=== PATIENT | male | born 1935 | race Caucasian/White ===

== ENCOUNTER 2016-08-14 14:02 | Emergency (ER) | payer MEDICARE, BC ==
[2016-08-14 14:13] VITALS: BP 130/56
--- NOTE | 2016-08-14 14:57 | CR ---
Chest: 2 views of the chest were obtained. Comparison: Previous chest x-ray of 05/28/16. Findings: Previous parenchymal density within the right upper lung has mostly resolved. There is some residual masslike density within the right upper lung that is an interval change from prior study. Difficult to exclude recurrent malignancy. Additional masslike density is seen within the left base which is smaller than the right upper lung finding. Blunting of the lateral left costophrenic angle is seen. Heart size appears within normal limits. Right sided infusion catheter is seen. Sternotomy and prosthetic heart valve are noted. Degenerative spurring is noted within the spine. Pleural thickening is noted within both lung apices. Impression: 1. Masslike density within the right upper chest which is an interval change from prior exam and difficult to exclude recurrent malignancy. 2. Additional masslike density within the left lung base which is an interval change from prior exam with differential including pneumonia, atelectasis and additional neoplasm. 3. Emphysematous change and other incidental findings. Diagnostic code #9
--- NOTE | 2016-08-14 15:07 | EDM.PDOC ---
ED HISTORY OF PRESENT ILLNESS - General Chief Complaint: Respiratory Problem Stated Complaint: SOB Time Seen by Provider: 08/14/16 14:23 Source of Information: Reports: Patient, Family History Limitations: Reports: No limitations - History of Present Illness INITIAL COMMENTS - FREE TEXT/NARRATIVE: The patient has lung cancer and he is currently getting immunological treatments for this. His last treatment was last week and for a few days he has had a cough and some mild wheezing. He has no fever, chills, sore throat, chest pain, abdominal pain, nausea or vomiting. He is worried he may have bronchitis or pneumonia. Timing/Duration: Reports: Day(s): Improves with: Reports: None Worsens with: Reports: None Associated Symptoms (General): Denies: chest pain, fever/chills, nausea/vomiting , shortness of breath - Related Data Allergies/ADRs: Allergies Allergy/AdvReac Type Severity Reaction Status Date / Time No Known Allergies Allergy Verified 08/14/16 14:10 Home Meds: Home Meds Calcium Carbonate [Calcium] 500 mg PO DAILY 02/23/14 [History] Diltiazem [Cardizem] 120 mg PO DAILY 02/23/14 [History] Furosemide [Lasix] 40 mg PO DAILY 02/23/14 [History] Metoprolol Succinate [Toprol Xl] 100 mg PO DAILY 02/23/14 [History] Potassium Chloride 20 meq PO DAILY 02/23/14 [History] Pramipexole [Mirapex] 1.5 mg PO BEDTIME 02/23/14 [History] Ramipril [Altace] 10 mg PO BEDTIME 02/23/14 [History] Tamsulosin [Flomax] 0.4 mg PO DAILY 02/23/14 [History] Warfarin [Coumadin] 7.5 mg PO DAILY 02/23/14 [History] atorvaSTATin [Lipitor] 40 mg PO DAILY 02/23/14 [History] Acetaminophen [Tylenol] 650 mg PO Q4H PRN 05/25/16 [History] Ascorbic Acid [Vitamin C] 250 mg PO DAILY 05/25/16 [History] Cholecalciferol (Vitamin D3) [Vitamin D] 1,000 units PO DAILY 05/25/16 [History] Cyanocobalamin (Vitamin B12) [Vitamin B12] 1,000 mcg PO DAILY 05/25/16 [History] Diltiazem [Cardizem CD] 120 mg PO DAILY 05/25/16 [History] Ferrous Sulfate [Iron] 324 mg PO DAILY 05/25/16 [History] Ubidecarenone [Coenzyme Q-10] 200 mg PO DAILY 05/25/16 [History] oxyCODONE 5 - 10 mg PO Q4H PRN 05/25/16 [History] Albuterol Sulfate [Proair Hfa] 8.5 gm IH Q4HR PRN #2 [id number] 05/29/16 [Rx] Levofloxacin [Levaquin] 750 mg PO DAILY #7 tablet 05/29/16 [Rx] Levofloxacin [Levaquin] 750 mg PO DAILY #5 tablet 08/14/16 [Rx] Past Medical History HEENT History: Reports: Impaired vision Other HEENT History: glasses Cardiovascular History: Reports: Afib, Bypass, CAD, High cholesterol, Hypertension Respiratory History: Reports: Sleep apnea Genitourinary History: Reports: Prostate disorder Musculoskeletal History: Reports: Arthritis, Back pain, chronic, Neck pain, chronic Hematologic History: Reports: Blood transfusion(s) Oncologic (Cancer) History: Reports: Lung, Lymphoma, Other (see below) Other Oncologic History: rectal cancer, surgically removed. reportedly in remission. - Infectious Disease History Infectious Disease History: Reports: Other (see below) Other Infectious Disease History: blood infection - Past Surgical History HEENT Surgical History: Reports: Cataract surgery Cardiovascular Surgical History: Reports: Carotid stents, Coronary artery bypass , Valve replacement Dermatological Surgical History: Reports: Skin graft Social & Family History - Family History Family Medical History: Noncontributory Cardiac: Reports: CAD : Reports: Other (see below) (ESRD in brother) Oncologic: Reports: Lung - Tobacco Use Smoking Status *Q: Former Smoker Years of Tobacco use: 20 Used Tobacco, but Quit: Yes Month Tobacco Last Used: 05/1969 Second Hand Smoke Exposure: No - Caffeine Use Caffeine Use: Reports: Coffee - Alcohol Use Days Per Week of Alcohol Use: 0 - Recreational Drug Use Recreational Drug Use: No - Living Situation & Occupation Living situation: Reports: with spouse 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) ED ROS GENERAL - Review of Systems Review Of Systems: See Below Constitutional: Reports: no symptoms HEENT: Reports: No symptoms Respiratory: Reports: Cough Cardiovascular: Reports: No symptoms Endocrine: Reports: no symptoms GI/Abdominal: Reports: No symptoms : Reports: no symptoms Musculoskeletal: Reports: no symptoms ED EXAM, GENERAL - Physical Exam Exam: See Below Exam Limited By: No limitations General Appearance: alert, no apparent distress Ears: normal external exam Nose: normal inspection Head: atraumatic, normocephalic Neck: normal inspection Respiratory/Chest: no respiratory distress, lungs clear, normal breath sounds Cardiovascular: regular rate, rhythm, no edema, no murmur GI/Abdominal: soft, non tender, no organomegaly Back Exam: normal inspection Extremities: normal inspection Course - Vital Signs Last Recorded V/S: Last Vital Signs Temp 98.9 F 08/14/16 14:10 Pulse 62 08/14/16 14:10 Resp 20 08/14/16 14:10 BP 130/56 L 08/14/16 14:10 Pulse Ox 95 08/14/16 14:10 - Orders/Labs/Meds Labs: Laboratory Tests 08/14/16 Range/Units 14:45 WBC 7.03 (4.23-9.07) K/mm3 RBC 3.53 L (4.63-6.08) M/mm3 Hgb 10.7 L (13.7-17.5) gm/L Hct 33.2 L (40.1-51.0) % MCV 94.1 H (79.0-92.2) fl MCH 30.3 (25.7-32.2) pg MCHC 32.2 (32.2-35.5) g/dl RDW Std Deviation 53.5 H (35.1-43.9) fL Plt Count 178 (163-337) K/mm3 MPV 8.2 L (9.4-12.3) fl Neut % (Auto) 72.9 H (34.0-67.9) % Lymph % (Auto) 12.1 L (21.8-53.1) % Woodson % (Auto) 9.2 (5.3-12.2) % Eos % (Auto) 5.1 (0.8-7.0) Baso % (Auto) 0.4 (0.1-1.2) % Neut # (Auto) 5.12 (1.78-5.38) K/mm3 Lymph # (Auto) 0.85 L (1.32-3.57) K/mm3 Woodson # (Auto) 0.65 (0.30-0.82) K/mm3 Eos # (Auto) 0.36 (0.04-0.54) K/mm3 Baso # (Auto) 0.03 (0.01-0.08) K/mm3 - Re-Assessments/Exams Free Text/Narrative Re-Assessment/Exam: 08/14/16 15:04 I ordered a CXR that shows masslike density within the right upper chest which is an interval change from prior exam and difficult to exclude recurrent malignancy. Additional masslike density within the left lung base which is an interval change from prior exam with differential including pneumonia, atelectasis and additional neoplasm. His WBC is normal at 7.03. His Hgb was low at 10.7. His platelets were normal at 178. 08/14/16 15:15 The patient and his saw his recent PET scan did show areas consistent with what I am seeing on the CXR. I will put him on some levaquin daily for 5 days. Departure - Departure Time of Disposition: 15:20 Disposition: Home, Self-Care 01 Condition: good Clinical Impression: Bronchitis Lung cancer Qualifiers: Laterality: right Lung location: upper lobe of lung Qualified Code(s): C34.11 - Malignant neoplasm of upper lobe, right bronchus or lung Prescriptions: Levofloxacin [Levaquin] 750 mg PO DAILY #5 tablet Referrals: Reggie Spivey MD [Primary Care Provider] - 1 Week Forms: ED Department Discharge Additional Instructions: Take the levaquin daily for 5 days. Follow up on Thursday and have your INR or coumadin level checked. Take some probiotic such as activia. Please return if you are worse.
== END 2016-08-14 15:30 | disposition home or self-care (01) ==
LOC: JD.ED 14:02
DX: J40 Bronchitis, not specified as acute or chronic (principal); C34.11 Malignant neoplasm of upper lobe, right bronchus or lung; I10 Essential (primary) hypertension; I25.810 Atherosclerosis of coronary artery bypass graft(s) without angina pectoris; G47.30 Sleep apnea, unspecified; E78.00 Pure hypercholesterolemia, unspecified; M19.90 Unspecified osteoarthritis, unspecified site; Z98.49 Cataract extraction status, unspecified eye; Z95.1 Presence of aortocoronary bypass graft; Z95.2 Presence of prosthetic heart valve; Z98.890 Other specified postprocedural states; Z85.048 Personal history of other malignant neoplasm of rectum, rectosigmoid junction, and anus; Z79.899 Other long term (current) drug therapy; Z87.891 Personal history of nicotine dependence
CPT/HCPCS: 36415; 71020; 71020-26; 85025; 99283; 99285

== ENCOUNTER 2017-08-08 15:26 | Inpatient (IN) | payer MEDICARE, BC ==
--- NOTE | 2017-08-08 16:11 | EDM.PDOC ---
ED HPI GENERAL MEDICAL PROBLEM - General Chief Complaint: Respiratory Problem Stated Complaint: RESPIRATORY ISSUES Time Seen by Provider: 08/08/17 15:45 Source of Information: Reports: Patient, Family () History Limitations: Reports: No Limitations - History of Present Illness INITIAL COMMENTS - FREE TEXT/NARRATIVE: The patient states that he developed a cough, occasionally productive of sputum , and rhinorrhea this past , 08/06/2017. He developed a fever that evening. He was seen at the walk-in clinic today, where he was found to have a fever of 102.6. A chest x-ray was performed, but the patient was then asked to come to the ED. The patient states that he has chronic dyspnea, both at rest and with exertion, no worse than usual. No recent nausea, vomiting, constipation , or diarrhea. Here in the ED, the patient was found to have a temperature 101.7 degrees, saturating 94% on room air. 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 The patient's states that he also has a history of lymphoma (she does not know if it is Hodgkin or non-Hodgkin type), currently in remission, and rectal cancer, also currently in remission. Additionally, the patient may have prostate cancer, not formally diagnosed yet. The patient did receive an influenza vaccine this season, and has previously been vaccinated with "the pneumonia vaccine" plus a booster. The patient's PCP is Dr. Spivey. His Oncologist is Dr. Slaughter. Treatments LUMBER PILER: Reports: Other (see below) Other Treatments LUMBER PILER: none Chest Pain Score (Numeric/FACES): 7 - Related Data Allergies Allergy/AdvReac Type Severity Reaction Status Date / Time No Known Allergies Allergy Verified 08/14/16 14:10 Home Meds: Home Meds Calcium Carbonate [Calcium] 500 mg PO DAILY 02/23/14 [History] Diltiazem [Cardizem] 120 mg PO DAILY 02/23/14 [History] Furosemide [Lasix] 40 mg PO DAILY 02/23/14 [History] Metoprolol Succinate [Toprol Xl] 100 mg PO DAILY 02/23/14 [History] Potassium Chloride 20 meq PO DAILY 02/23/14 [History] Pramipexole [Mirapex] 1.5 mg PO BEDTIME 02/23/14 [History] Ramipril [Altace] 10 mg PO BEDTIME 10/16/14 [History] Tamsulosin [Flomax] 0.4 mg PO DAILY 02/23/14 [History] Warfarin [Coumadin] 7.5 mg PO SUTUWETHSA 02/23/14 [History] atorvaSTATin [Lipitor] 40 mg PO DAILY 02/23/14 [History] Acetaminophen [Tylenol] 650 mg PO Q4H PRN 05/25/16 [History] Ascorbic Acid [Vitamin C] 250 mg PO DAILY 05/25/16 [History] Cholecalciferol (Vitamin D3) [Vitamin D] 1,000 units PO DAILY 05/25/16 [History] Cyanocobalamin (Vitamin B12) [Vitamin B12] 1,000 mcg PO DAILY 05/25/16 [History] Ferrous Sulfate [Iron] 324 mg PO DAILY 05/25/16 [History] Ubidecarenone [Coenzyme Q-10] 200 mg PO DAILY 05/25/16 [History] Antiox#10/Om3/DHA/EPA/Lut/Zeax [I-Caps with Lutein-Thousandsticks 3 SFG] 1 cap PO DAILY 08/08/17 [History] Warfarin [Coumadin] 5 mg PO MOFR 08/08/17 [History] Past Medical History HEENT History: Reports: Impaired Vision Other HEENT History: glasses Cardiovascular History: Reports: Afib (paroxysmal), CAD, High Cholesterol, Hypertension Respiratory History: Reports: Sleep Apnea (nightly CPAP 3) Musculoskeletal History: Reports: Arthritis, Back Pain, Chronic, Neck Pain, Chronic, Other (See Below) (Spinal stenosis) Hematologic History: Reports: Blood Transfusion(s) Oncologic (Cancer) History: Reports: Lung (Squamous cell, dx'd July 2016), Lymphoma (in remission), Prostate (Suspected, not confirmed), Other (See Below) (Rectal cancer, currently in remission) - Past Surgical History HEENT Surgical History: Reports: Cataract Surgery Cardiovascular Surgical History: Reports: Carotid Stents (right, 2011), Coronary Artery Bypass (x 5 vessel 1997 with revision x 2 vessel 2011), Valve Replacement (porcine aortic 2011) Neurological Surgical History: Reports: Lumbar Spine (laminectomy x 2) Dermatological Surgical History: Reports: Skin Graft Social & Family History - Family History Family Medical History: Noncontributory Cardiac: Reports: CAD : Reports: Other (See Below) Oncologic: Reports: Lung - Tobacco Use Smoking Status *Q: Former Smoker Years of Tobacco use: 20 Packs/Tins Daily: 0.5 Month/Year Tobacco Last Used: Quit May 1969 Second Hand Smoke Exposure: No - Caffeine Use Caffeine Use: Reports: Coffee, Soda, Tea - Alcohol Use Alcohol Use History: No Days Per Week of Alcohol Use: 0 - Recreational Drug Use Recreational Drug Use: No - Living Situation & Occupation Living situation: Reports: , with Spouse Occupation: Retired ED ROS GENERAL - Review of Systems Review Of Systems: ROS reveals no pertinent complaints other than HPI. ED EXAM, GENERAL - Physical Exam Exam: See Below Exam Limited By: No Limitations General Appearance: Alert, WD/WN, No Apparent Distress Eye Exam: Bilateral Eye: Normal Inspection Ears: Normal External Exam, Hearing Grossly Normal Nose: Normal Inspection, No Blood Throat/Mouth: Normal Inspection, Normal Lips, Normal Voice, No Airway Compromise Head: Atraumatic, Normocephalic Neck: Normal Inspection, Full Range of Motion Respiratory/Chest: No Respiratory Distress, Lungs Clear, Normal Breath Sounds, No Accessory Muscle Use Cardiovascular: Normal Peripheral Pulses, No Gallop, No JVD, No Murmur, No Rub, Systolic Murmur (holosystolic, Grade 3-4/6, heard best at LUSB), Irregularly Irregular (frequent premature beats) Peripheral Pulses: 4+: Radial (L), Radial (R) GI/Abdominal: Normal Bowel Sounds, Soft, Non-Tender, No Organomegaly, No Distention, No Abnormal Bruit, No Mass (Male) Exam: Deferred Rectal (Males) Exam: Deferred Back Exam: Normal Inspection, Full Range of Motion, NT Extremities: Normal Inspection, Normal Range of Motion, Normal Capillary Refill , Other (1-2+ pretibial edema bilaterally) Neurological: Alert, Oriented, Normal Cognition, No Motor/Sensory Deficits Psychiatric: Normal Affect Skin Exam: Warm, Dry, Intact, Normal Color, No Rash Course - Vital Signs Last Recorded V/S: Last Vital Signs Temp 38.7 C H 08/08/17 15:34 Pulse 76 08/08/17 15:34 Resp 32 H 08/08/17 15:34 BP 166/69 H 08/08/17 15:34 Pulse Ox 94 L 08/08/17 15:34 - Orders/Labs/Meds Orders: Active Orders 24 hr Category Date Time Status Chest 2V [CR] Stat Exams 08/08/17 16:22 Taken CULTURE BLOOD [BC] Stat Lab 08/08/17 16:45 Received CULTURE BLOOD [BC] Stat Lab 08/08/17 17:00 Received INFLUENZA A+B AG SCREEN [RM] Stat Lab 08/08/17 17:22 Ordered Azithromycin [Zithromax] 500 mg Med 08/08/17 19:01 Active Sodium Chloride 0.9% [Normal Saline] 250 ml IV ONETIME Meropenem [Merrem] 1 gm Med 08/08/17 18:59 Active Sodium Chloride 0.9% [Normal Saline] 100 ml IV ONETIME Sodium Chloride 0.9% [Normal Saline] 1,000 ml Med 08/08/17 19:15 Active IV ASDIRECTED Blood Culture x2 Reflex Set [OM.PC] Stat Oth 08/08/17 16:24 Ordered Medication Orders Azithromycin 500 mg/ Sodium (Chloride) 250 mls @ 250 mls/hr IV ONETIME ONE Stop: 08/08/17 20:00 Meropenem 1 gm/ Sodium (Chloride) 100 mls @ 200 mls/hr IV ONETIME ONE Stop: 08/08/17 19:28 Sodium Chloride (Normal Saline) 1,000 mls @ 150 mls/hr IV ASDIRECTED MONA Labs: Laboratory Tests 08/08/17 08/08/17 08/08/17 Range/Units 16:45 16:45 17:00 WBC 8.08 (4.23-9.07) K/mm3 RBC 3.80 L (4.63-6.08) M/mm3 Hgb 12.0 L (13.7-17.5) gm/L Hct 37.3 L (40.1-51.0) % MCV 98.2 H (79.0-92.2) fl MCH 31.6 (25.7-32.2) pg MCHC 32.2 (32.2-35.5) g/dl RDW Std Deviation 54.3 H (35.1-43.9) fL Plt Count 146 L (163-337) K/mm3 MPV 9.4 (9.4-12.3) fl Neutrophils % (Manual) 77 H (40-60) % Band Neutrophils % 0 (0-10) % Lymphocytes % (Manual) 16 L (20-40) % Atypical Lymphs % 0 % Monocytes % (Manual) 6 (2-10) % Eosinophils % (Manual) 0 L (0.8-7.0) % Basophils % (Manual) 1 (0.2-1.2) Platelet Estimate Adequate Anisocytosis 1+ slight Macrocytosis 1+ slight Ovalocytes 1+ slight RBC Morph Comment Not Reportable Sodium 138 (136-145) mEq/L Potassium 4.2 (3.5-5.1) mEq/L Chloride 103 (98-107) mEq/L Carbon Dioxide 25 (21-32) mEq/L Anion Gap 14.2 (5-15) BUN 31 H (7-18) mg/dL Creatinine 1.4 H (0.7-1.3) mg/dL Est Cr Clr Drug Dosing 43.88 mL/min Estimated GFR (MDRD) 48 (>60) mL/min BUN/Creatinine Ratio 22.1 H (14-18) Glucose 108 (83-115) mg/dL Lactic Acid 1.2 (0.4-2.0) mmol/L Calcium 9.0 (8.5-10.1) mg/dL Total Bilirubin 1.5 H (0.2-1.0) mg/dL AST 29 (15-37) U/L ALT 34 (16-63) U/L Alkaline Phosphatase 115 (46-116) U/L Total Protein 7.0 (6.4-8.2) g/dl Albumin 3.4 (3.4-5.0) g/dl Globulin 3.6 gm/dL Albumin/Globulin Ratio 0.9 L (1-2) Meds: Medications Generic Name Dose Route Start Last Admin Trade Name Freq PRN Reason Stop Dose Admin Azithromycin 500 mg/ Sodium 250 mls @ 250 mls/hr 08/08/17 19:01 Chloride IV 08/08/17 20:00 ONETIME ONE Meropenem 1 gm/ Sodium 100 mls @ 200 mls/hr 08/08/17 18:59 Chloride IV 08/08/17 19:28 ONETIME ONE Sodium Chloride 1,000 mls @ 150 mls/hr 08/08/17 19:15 Normal Saline IV ASDIRECTED MONA - Re-Assessments/Exams Free Text/Narrative Re-Assessment/Exam: 08/08/17 16:25 The chest x-ray from the walk-in clinic was transmitted so that I can view it, however, it is my understanding that Dr. Tomlinson will not read chest x-rays obtained from a different facility, therefore it will need to be repeated. 08/08/17 17:23 2-view chest radiograph reviewed. Cardiac silhouette is within normal limits. No pulmonary vascular congestion. No pleural effusions. There is an infiltrate to the right upper lung as well as to the lower left lung that appears to be unchanged from prior chest radiograph dated 08/14/2016, and likely represents his established lung carcinoma. No pneumothorax. Sternotomy wires noted. Prosthetic aortic valve annulus noted. Right Port-A-Cath noted. There is hyperinflation and bilateral diaphragmatic flattening, suggestive of COPD. Formal read per the radiologist pending. 08/08/17 19:05 Case discussed with Venkatesh One Call at 18:46. Case then discussed with Dr. Go, Oncologist concrete mixer operator helper for Dr. Slaughter, at 18: 52. He is concerned that the patient has progressive lung cancer and is now suffering from post-obstructive pneumonia. He is recommending that we treat the patient with meropenem 1 g Q8 hrs and azithromycin 500 mg daily, along with IV fluid hydration to address the acute renal insufficiency. He recommends adding vancomycin if the patient does not defervesce within a few days. He recommended that we acquire a CT scan of the chest to further elucidate the nature of the infiltrates seen on the chest x-ray, and confirm pneumonia. He does not feel that the patient requires transfer to their facility. 08/08/17 19:25 The above plan was discussed with the patient and his , who are in agreement. Case then discussed with Dr. Mccormack at 19:13. She agrees to admit the patient to telemetry. I will leave her to order the CT scan, perhaps after the patient has received sufficient IV fluid to correct his renal insufficiency. Departure - Departure Time of Disposition: 19:15 Disposition: Admitted As Inpatient 65 Condition: Fair Clinical Impression: Pneumonia, Squamous cell lung cancer, Acute renal insufficiency - Discharge Information - My Orders Last 24 Hours: My Active Orders 08/08/17 16:22 Chest 2V [CR] Stat 08/08/17 16:24 Blood Culture x2 Reflex Set [OM.PC] Stat 08/08/17 16:45 CULTURE BLOOD [BC] Stat 08/08/17 17:00 CULTURE BLOOD [BC] Stat 08/08/17 17:22 INFLUENZA A+B AG SCREEN [RM] Stat 08/08/17 18:59 Meropenem [Merrem] 1 gm Sodium Chloride 0.9% [Normal Saline] 100 ml IV ONETIME 08/08/17 19:01 Azithromycin [Zithromax] 500 mg Sodium Chloride 0.9% [Normal Saline] 250 ml IV ONETIME 08/08/17 19:15 Sodium Chloride 0.9% [Normal Saline] 1,000 ml IV ASDIRECTED - Assessment/Plan Last 24 Hours: My Active Orders 08/08/17 16:22 Chest 2V [CR] Stat 08/08/17 16:24 Blood Culture x2 Reflex Set [OM.PC] Stat 08/08/17 16:45 CULTURE BLOOD [BC] Stat 08/08/17 17:00 CULTURE BLOOD [BC] Stat 08/08/17 17:22 INFLUENZA A+B AG SCREEN [RM] Stat 08/08/17 18:59 Meropenem [Merrem] 1 gm Sodium Chloride 0.9% [Normal Saline] 100 ml IV ONETIME 08/08/17 19:01 Azithromycin [Zithromax] 500 mg Sodium Chloride 0.9% [Normal Saline] 250 ml IV ONETIME 08/08/17 19:15 Sodium Chloride 0.9% [Normal Saline] 1,000 ml IV ASDIRECTED
[2017-08-08] MEDS ORDERED: Meropenem 1 GM in Sodium Chloride 0.9% 100 ML IV ONE (18:59)
[2017-08-08] MEDS ORDERED: Azithromycin 500 MG in Sodium Chloride 0.9% 250 ML IV ONE (19:01)
[2017-08-08] MEDS ORDERED: Sodium Chloride 0.9% 1,000 ML IV SCH (19:15)
--- NOTE | 2017-08-08 20:52 | PCM.HP ---
H&P History of Present Illness - General Date of Service: 08/08/17 Admit Problem/Dx: Admission Diagnosis/Problem Admission Diagnosis/Problem Pneumonia Source of Information: Family, Provider History Limitations: Reports: No Limitations - History of Present Illness Initial Comments - Free Text/Narative: 82 year old with multiple cancers including: lung, lymphoma (unspecified), rectal and possibly prostate. he unfortunately did not get the influenza vaccine during this season, however has been in his usual state of health until 3-4 days [employer]. He began having a cough, productive, fever/chills and increasing SOB on exertion. He has seen in the walk in clinic and instructed to go to the ED at [facility]. The temp reported by the clinic was 102.6, the ED reported 101.7. A discussion with the oncologist water commissioner, Dr Go occurred. The patient will be evaluated via CT of the [place] re: post obstructive PNA. This will be ordered after his renal function occurs. Onset of Symptoms: Reports: Gradual Symptom Onset Date: 08/06/17 Duration of Symptoms: Reports: Day(s):, Getting Worse Location: Reports: Chest, Generalized Severity: Moderate Improves with: Reports: Medication Worsens with: Reports: None Associated Symptoms: Reports: cough w sputum, Fever/Chills, Malaise, Nausea/ Vomiting, Shortness of Breath, Weakness Chest Pain Score (Numeric/FACES): 7 - Related Data Allergies/Adverse Reactions: Allergies Allergy/AdvReac Type Severity Reaction Status Date / Time No Known Allergies Allergy Verified 08/08/17 21:12 Home Medications: Home Meds Calcium Carbonate [Calcium] 500 mg PO DAILY 02/23/14 [History] Diltiazem [Cardizem] 120 mg PO DAILY 02/23/14 [History] Furosemide [Lasix] 40 mg PO DAILY 02/23/14 [History] Metoprolol Succinate [Toprol Xl] 100 mg PO DAILY 02/23/14 [History] Potassium Chloride 20 meq PO DAILY 02/23/14 [History] Pramipexole [Mirapex] 1.5 mg PO BEDTIME 02/23/14 [History] Ramipril [Altace] 10 mg PO BEDTIME 02/23/14 [History] Tamsulosin [Flomax] 0.4 mg PO DAILY 02/23/14 [History] Warfarin [Coumadin] 7.5 mg PO SUTUWETHSA 02/23/14 [History] atorvaSTATin [Lipitor] 40 mg PO DAILY 02/23/14 [History] Acetaminophen [Tylenol] 650 mg PO Q4H PRN 05/25/16 [History] Ascorbic Acid [Vitamin C] 250 mg PO DAILY 05/25/16 [History] Cholecalciferol (Vitamin D3) [Vitamin D] 1,000 units PO DAILY 05/25/16 [History] Cyanocobalamin (Vitamin B12) [Vitamin B12] 1,000 mcg PO DAILY 05/25/16 [History] Ferrous Sulfate [Iron] 324 mg PO DAILY 05/25/16 [History] Ubidecarenone [Coenzyme Q-10] 200 mg PO DAILY 05/25/16 [History] Antiox#10/Om3/DHA/EPA/Lut/Zeax [I-Caps with Lutein-Canjilon 3 SFG] 1 cap PO DAILY 08/08/17 [History] Warfarin [Coumadin] 5 mg PO MOFR 08/08/17 [History] Past Medical History HEENT History: Reports: Impaired Vision Other HEENT History: glasses Cardiovascular History: Reports: Afib (paroxysmal), CAD, High Cholesterol, Hypertension Respiratory History: Reports: Sleep Apnea (nightly CPAP 3) Genitourinary History: Reports: Prostate Disorder Musculoskeletal History: Reports: Arthritis, Back Pain, Chronic, Neck Pain, Chronic, Other (See Below) (Spinal stenosis) Hematologic History: Reports: Blood Transfusion(s) Oncologic (Cancer) History: Reports: Lung (Squamous cell, 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 reportedly in remission. - Infectious Disease History Infectious Disease History: Reports: Other (See Below) Other Infectious Disease History: blood infection - Past Surgical History HEENT Surgical History: Reports: Cataract Surgery Cardiovascular Surgical History: Reports: Carotid Stents (right, 2011), Coronary Artery Bypass (x 5 vessel 1997 with revision x 2 vessel 2011), Valve Replacement (porcine aortic 2011) Neurological Surgical History: Reports: Lumbar Spine (laminectomy x 2) Dermatological Surgical History: Reports: Skin Graft Social & Family History - Family History Family Medical History: Noncontributory Cardiac: Reports: CAD : Reports: Other (See Below) Oncologic: Reports: Lung - Tobacco Use Smoking Status *Q: Former Smoker Years of Tobacco use: 20 Packs/Tins Daily: 0.5 Used Tobacco, but Quit: Yes Month/Year Tobacco Last Used: Quit May 1969 Second Hand Smoke Exposure: No - Caffeine Use Caffeine Use: Reports: Coffee, Soda, Tea - Alcohol Use Days Per Week of Alcohol Use: 0 - Recreational Drug Use Recreational Drug Use: No - Living Situation & Occupation Living situation: Reports: , with Spouse Occupation: Retired H&P Review of Systems - Review of Systems: Review Of Systems: See Below General: Reports: Fever, Malaise, Weakness HEENT: Reports: No Symptoms Pulmonary: Reports: Shortness of Breath, Wheezing Cardiovascular: Reports: Lightheadedness Gastrointestinal: Reports: No Symptoms Genitourinary: Reports: No Symptoms Musculoskeletal: Reports: No Symptoms Skin: Reports: No Symptoms Psychiatric: Reports: No Symptoms Neurological: Reports: No Symptoms Hematologic/Lymphatic: Reports: No Symptoms Immunologic: Reports: No Symptoms Exam - Exam Exam: See Below - Vital Signs Vital Signs: Last Vital Signs Temp 38.7 C H 08/08/17 15:34 Pulse 76 08/08/17 15:34 Resp 32 H 08/08/17 15:34 BP 166/69 H 08/08/17 15:34 Pulse Ox 94 L 08/08/17 15:34 Weight: 99.337 kg - Exam Quality Assessment: Supplemental Oxygen, DVT Prophylaxis General: Alert, Oriented, Cooperative HEENT: Conjunctiva Clear, EOMI, Pupils Equal, Pupils Reactive, PERRLA Neck: Supple, Trachea Midline Lungs: Normal Respiratory Effort, Decreased Breath Sounds, Rhonchi, Wheezing Cardiovascular: Regular Rate, Irregular Rhythm, Systolic Murmur GI/Abdominal Exam: Normal Bowel Sounds, Soft, Non-Tender, No Organomegaly, No Distention (Male) Exam: Deferred Rectal (Males) Exam: Deferred Back Exam: Normal Inspection Extremities: Normal Inspection, No Pedal Edema, Slow Capillary Refill Skin: Warm Neurological: Cranial Nerves Intact Neuro Extensive - Mental Status: Alert, Oriented x3 Neuro Extensive - Motor, Sensory, Reflexes: CN II-XII Intact Psychiatric: Alert - Patient Data Lab Results Last 24 hrs: Laboratory Results - last 24 hr 08/08/17 08/08/17 08/08/17 Range/Units 16:45 16:45 17:00 WBC 8.08 (4.23-9.07) K/mm3 RBC 3.80 L (4.63-6.08) M/mm3 Hgb 12.0 L (13.7-17.5) gm/L Hct 37.3 L (40.1-51.0) % MCV 98.2 H (79.0-92.2) fl MCH 31.6 (25.7-32.2) pg MCHC 32.2 (32.2-35.5) g/dl RDW Std Deviation 54.3 H (35.1-43.9) fL Plt Count 146 L (163-337) K/mm3 MPV 9.4 (9.4-12.3) fl Neutrophils % (Manual) 77 H (40-60) % Band Neutrophils % 0 (0-10) % Lymphocytes % (Manual) 16 L (20-40) % Atypical Lymphs % 0 % Monocytes % (Manual) 6 (2-10) % Eosinophils % (Manual) 0 L (0.8-7.0) % Basophils % (Manual) 1 (0.2-1.2) Platelet Estimate Adequate Anisocytosis 1+ slight Macrocytosis 1+ slight Ovalocytes 1+ slight RBC Morph Comment Not Reportable Sodium 138 (136-145) mEq/L Potassium 4.2 (3.5-5.1) mEq/L Chloride 103 (98-107) mEq/L Carbon Dioxide 25 (21-32) mEq/L Anion Gap 14.2 (5-15) BUN 31 H (7-18) mg/dL Creatinine 1.4 H (0.7-1.3) mg/dL Est Cr Clr Drug Dosing 43.88 mL/min Estimated GFR (MDRD) 48 (>60) mL/min BUN/Creatinine Ratio 22.1 H (14-18) Glucose 108 (83-115) mg/dL Lactic Acid 1.2 (0.4-2.0) mmol/L Calcium 9.0 (8.5-10.1) mg/dL Total Bilirubin 1.5 H (0.2-1.0) mg/dL AST 29 (15-37) U/L ALT 34 (16-63) U/L Alkaline Phosphatase 115 (46-116) U/L Total Protein 7.0 (6.4-8.2) g/dl Albumin 3.4 (3.4-5.0) g/dl Globulin 3.6 gm/dL Albumin/Globulin Ratio 0.9 L (1-2) Result Diagrams: 08/08/17 16:45 08/08/17 17:00 Bruce Results Last 24 hrs: Microbiology 08/08/17 17:22 Influenza Type A Antigen Screen - Final Nasopharyngeal Swab NEGATIVE INFLUENZA A VIRUS AG Influenza Type B Antigen Screen - Final NEGATIVE INFLUENZA B VIRUS AG - Problem List (1) PATY (obstructive sleep apnea) SNOMED Code(s): 63233366 ICD Code: G47.33 - OBSTRUCTIVE SLEEP APNEA (ADULT) (PEDIATRIC) Status: Acute Current Visit: Yes (2) S/P AVR SNOMED Code(s): 1914778385548, 40788692, 6624582018113 ICD Code: Z95.2 - PRESENCE OF PROSTHETIC HEART VALVE Status: Acute Current Visit: Yes (3) COPD (chronic obstructive pulmonary disease) SNOMED Code(s): 65076828 ICD Code: J44.9 - CHRONIC OBSTRUCTIVE PULMONARY DISEASE, UNSPECIFIED Status : Acute Current Visit: Yes (4) CKD (chronic kidney disease), stage III SNOMED Code(s): 782299806 ICD Code: N18.3 - CHRONIC KIDNEY DISEASE, STAGE 3 (MODERATE) Status: Acute Current Visit: Yes (5) CAD (coronary artery disease) of bypass graft SNOMED Code(s): 423630922, 09297834, 347064032, 902126768, 160913596 ICD Code: I25.810 - ATHEROSCLEROSIS OF CABG W/O ANGINA PECTORIS Status: Acute Current Visit: Yes (6) PVD (peripheral vascular disease) SNOMED Code(s): 733036400 ICD Code: I73.9 - PERIPHERAL VASCULAR DISEASE, UNSPECIFIED Status: Acute Current Visit: Yes (7) Carotid artery disease SNOMED Code(s): 870570325 ICD Code: I77.9 - DISORDER OF ARTERIES AND ARTERIOLES, UNSPECIFIED Status: Acute Current Visit: Yes (8) Rectal adenocarcinoma SNOMED Code(s): 783343751 ICD Code: C20 - MALIGNANT NEOPLASM OF RECTUM Status: Acute Current Visit : Yes (9) Lymphoma SNOMED Code(s): 963513227 ICD Code: C85.90 - NON-HODGKIN LYMPHOMA, UNSPECIFIED, UNSPECIFIED SITE Status: Acute Current Visit: Yes (10) Acute renal insufficiency SNOMED Code(s): 728233219 ICD Code: N28.9 - DISORDER OF KIDNEY AND URETER, UNSPECIFIED Status: Acute Current Visit: Yes (11) Pneumonia SNOMED Code(s): 295535296 ICD Code: J18.9 - PNEUMONIA, UNSPECIFIED ORGANISM Status: Acute Current Visit: Yes (12) Squamous cell lung cancer SNOMED Code(s): 015328861, 989264426 ICD Code: C34.90 - MALIGNANT NEOPLASM OF UNSP PART OF UNSP BRONCHUS OR LUNG Status: Acute Current Visit: Yes Problem List Initiated/Reviewed/Updated: Yes Orders Last 24hrs: Active Orders 24 hr Category Date Time Status Admission Status [Patient Status] [ADT] Routine ADT 08/08/17 20:10 Active Chest 2V [CR] Stat Exams 08/08/17 16:22 Taken CULTURE BLOOD [BC] Stat Lab 08/08/17 16:45 Received CULTURE BLOOD [BC] Stat Lab 08/08/17 17:00 Received INFLUENZA A+B AG SCREEN [RM] Stat Lab 08/08/17 17:22 Ordered Sodium Chloride 0.9% [Normal Saline] 1,000 ml Med 08/08/17 19:15 Active IV ASDIRECTED Blood Culture x2 Reflex Set [OM.PC] Stat Oth 08/08/17 16:24 Ordered Medication Orders Sodium Chloride (Normal Saline) 1,000 mls @ 150 mls/hr IV ASDIRECTED MONA Last Admin: 08/08/17 19:49 Dose: 150 mls/hr Assessment/Plan Comment:: Impression: Lung cancer with possible post obstructive PNA History of COPD, former tobacco Acute on chronic kidney disease (CKD, stage III) Dehydration Chronic Hx of rectal CA Hx of lymphoma, unspecified PVD (NATHALIE) CAD/CABG original and revision AVR, Porcine PAF on coumadin PATY on CPAP Plan: IVF Meropenem/Zithromax; Vancomycin if no imrpvement CT of chest re: post obstructive PNA after IVF Daily Labs Home meds DVT prophylaxis GI prophylaxis CM/PT/OT
[2017-08-08] MEDS ORDERED: Ondansetron 4 MG/2 ML SDV IVPUSH PRN (21:09)
[2017-08-08] MEDS ORDERED: Albuterol/Ipratropium 3.0-0.5 MG/3 ML Neb Soln NEB PRN (21:33)
[2017-08-08] MEDS ORDERED: Albuterol 0.083% 2.5 MG/3 ML Neb Soln NEB PRN (21:34)
[2017-08-08] MEDS: Acetaminophen 325 MG Tab PO PRN (22:09)
[2017-08-08] MEDS: Pramipexole 0.5 MG Tab PO SCH (22:10)
[2017-08-08] MEDS: Warfarin 7.5 MG Tab PO SCH (23:47)
[2017-08-09] MEDS ORDERED: Azithromycin 500 MG in Sodium Chloride 0.9% 250 ML IV SCH ×2
[2017-08-09] MEDS: Meropenem 1 GM in Sodium Chloride 0.9% 100 ML IV SCH ×2 (03:23→12:29)
[2017-08-09] MEDS ORDERED: Sodium Chloride 0.9% 1,000 ML IV SCH (06:00)
--- NOTE | 2017-08-09 08:28 | PCM.PN ---
- General Info Date of Service: 08/09/17 Admission Dx/Problem (Free Text): Admission Diagnosis/Problem Admission Diagnosis/Problem Pneumonia Subjective Update: Follow Up Functional Status: Reports: Pain Controlled, Tolerating Diet, Ambulating, Urinating. Denies: New Symptoms - Review of Systems General: Denies: Fever, Weakness, Fatigue, Malaise, Chills HEENT: Reports: No Symptoms Pulmonary: Reports: Cough, Sputum. Denies: Shortness of Breath, Pleuritic Chest Pain, Wheezing Cardiovascular: Denies: Chest Pain, Palpitations, Dyspnea on Exertion, Edema, Lightheadedness Gastrointestinal: Reports: Flatus. Denies: Abdominal Pain, Constipation, Decreased Appetite, Diarrhea, Difficulty Swallowing, Nausea, Vomiting Genitourinary: Reports: No Symptoms Musculoskeletal: Reports: No Symptoms Skin: Denies: Cyanosis, Mottled, Pallor, Diaphoresis Neurological: Denies: Confusion, Difficulty Walking, Weakness, Gait Disturbance Psychiatric: Denies: Depression, Anxiety, Agitation, Hallucinations Systems Review Comment:: No overnight or acute issues. He feels a bit better this morning. He is still coughs with phlegm. He has been afebrile w/o leukocytosis. - Patient Data Vitals - Most Recent: Last Vital Signs Temp 37.2 C 08/09/17 03:28 Pulse 70 08/09/17 03:28 Resp 18 08/09/17 03:28 BP 127/67 08/09/17 03:28 Pulse Ox 94 L 08/09/17 03:28 Weight - Most Recent: 96.887 kg I&O - Last 24 Hours: Intake & Output 08/08/17 08/09/17 08/09/17 22:59 06:59 14:59 Intake Total 1525 Output Total 600 Balance 925 Lab Results Last 24 Hours: Laboratory Results - last 24 hr 08/08/17 08/08/17 08/08/17 Range/Units 16:45 16:45 17:00 WBC 8.08 (4.23-9.07) K/mm3 RBC 3.80 L (4.63-6.08) M/mm3 Hgb 12.0 L (13.7-17.5) gm/L Hct 37.3 L (40.1-51.0) % MCV 98.2 H (79.0-92.2) fl MCH 31.6 (25.7-32.2) pg MCHC 32.2 (32.2-35.5) g/dl RDW Std Deviation 54.3 H (35.1-43.9) fL Plt Count 146 L (163-337) K/mm3 MPV 9.4 (9.4-12.3) fl Neut % (Auto) (34.0-67.9) % Lymph % (Auto) (21.8-53.1) % Collier % (Auto) (5.3-12.2) % Eos % (Auto) (0.8-7.0) Baso % (Auto) (0.1-1.2) % Neut # (Auto) (1.78-5.38) K/mm3 Lymph # (Auto) (1.32-3.57) K/mm3 Collier # (Auto) (0.30-0.82) K/mm3 Eos # (Auto) (0.04-0.54) K/mm3 Baso # (Auto) (0.01-0.08) K/mm3 Neutrophils % (Manual) 77 H (40-60) % Band Neutrophils % 0 (0-10) % Lymphocytes % (Manual) 16 L (20-40) % Atypical Lymphs % 0 % Monocytes % (Manual) 6 (2-10) % Eosinophils % (Manual) 0 L (0.8-7.0) % Basophils % (Manual) 1 (0.2-1.2) Platelet Estimate Adequate Anisocytosis 1+ slight Macrocytosis 1+ slight Ovalocytes 1+ slight RBC Morph Comment Not Reportable PT (8.0-13.0) SECONDS INR Sodium 138 (136-145) mEq/L Potassium 4.2 (3.5-5.1) mEq/L Chloride 103 (98-107) mEq/L Carbon Dioxide 25 (21-32) mEq/L Anion Gap 14.2 (5-15) BUN 31 H (7-18) mg/dL Creatinine 1.4 H (0.7-1.3) mg/dL Est Cr Clr Drug Dosing 43.88 mL/min Estimated GFR (MDRD) 48 (>60) mL/min BUN/Creatinine Ratio 22.1 H (14-18) Glucose 108 (83-115) mg/dL Lactic Acid 1.2 (0.4-2.0) mmol/L Calcium 9.0 (8.5-10.1) mg/dL Total Bilirubin 1.5 H (0.2-1.0) mg/dL AST 29 (15-37) U/L ALT 34 (16-63) U/L Alkaline Phosphatase 115 (46-116) U/L C-Reactive Protein (<1.0) mg/dL Total Protein 7.0 (6.4-8.2) g/dl Albumin 3.4 (3.4-5.0) g/dl Globulin 3.6 gm/dL Albumin/Globulin Ratio 0.9 L (1-2) 08/08/17 08/09/17 08/09/17 Range/Units 22:30 05:30 05:30 WBC 5.84 (4.23-9.07) K/mm3 RBC 3.51 L (4.63-6.08) M/mm3 Hgb 11.2 L (13.7-17.5) gm/L Hct 34.6 L (40.1-51.0) % MCV 98.6 H (79.0-92.2) fl MCH 31.9 (25.7-32.2) pg MCHC 32.4 (32.2-35.5) g/dl RDW Std Deviation 53.7 H (35.1-43.9) fL Plt Count 126 L (163-337) K/mm3 MPV 9.1 L (9.4-12.3) fl Neut % (Auto) 67.6 (34.0-67.9) % Lymph % (Auto) 15.2 L (21.8-53.1) % Collier % (Auto) 13.0 H (5.3-12.2) % Eos % (Auto) 3.4 (0.8-7.0) Baso % (Auto) 0.3 (0.1-1.2) % Neut # (Auto) 3.94 (1.78-5.38) K/mm3 Lymph # (Auto) 0.89 L (1.32-3.57) K/mm3 Collier # (Auto) 0.76 (0.30-0.82) K/mm3 Eos # (Auto) 0.20 (0.04-0.54) K/mm3 Baso # (Auto) 0.02 (0.01-0.08) K/mm3 Neutrophils % (Manual) (40-60) % Band Neutrophils % (0-10) % Lymphocytes % (Manual) (20-40) % Atypical Lymphs % % Monocytes % (Manual) (2-10) % Eosinophils % (Manual) (0.8-7.0) % Basophils % (Manual) (0.2-1.2) Platelet Estimate Anisocytosis Macrocytosis Ovalocytes RBC Morph Comment PT 23.8 H (8.0-13.0) SECONDS INR 2.21 Sodium 139 (136-145) mEq/L Potassium 3.8 (3.5-5.1) mEq/L Chloride 105 (98-107) mEq/L Carbon Dioxide 23 (21-32) mEq/L Anion Gap 14.8 (5-15) BUN 30 H (7-18) mg/dL Creatinine 1.3 (0.7-1.3) mg/dL Est Cr Clr Drug Dosing 47.26 mL/min Estimated GFR (MDRD) 53 (>60) mL/min BUN/Creatinine Ratio 23.1 H (14-18) Glucose 108 (83-115) mg/dL Lactic Acid (0.4-2.0) mmol/L Calcium 8.5 (8.5-10.1) mg/dL Total Bilirubin (0.2-1.0) mg/dL AST (15-37) U/L ALT (16-63) U/L Alkaline Phosphatase (46-116) U/L C-Reactive Protein 4.0 H* (<1.0) mg/dL Total Protein (6.4-8.2) g/dl Albumin (3.4-5.0) g/dl Globulin gm/dL Albumin/Globulin Ratio (1-2) 08/09/17 08/09/17 Range/Units 05:30 05:30 WBC (4.23-9.07) K/mm3 RBC (4.63-6.08) M/mm3 Hgb (13.7-17.5) gm/L Hct (40.1-51.0) % MCV (79.0-92.2) fl MCH (25.7-32.2) pg MCHC (32.2-35.5) g/dl RDW Std Deviation (35.1-43.9) fL Plt Count (163-337) K/mm3 MPV (9.4-12.3) fl Neut % (Auto) (34.0-67.9) % Lymph % (Auto) (21.8-53.1) % Collier % (Auto) (5.3-12.2) % Eos % (Auto) (0.8-7.0) Baso % (Auto) (0.1-1.2) % Neut # (Auto) (1.78-5.38) K/mm3 Lymph # (Auto) (1.32-3.57) K/mm3 Collier # (Auto) (0.30-0.82) K/mm3 Eos # (Auto) (0.04-0.54) K/mm3 Baso # (Auto) (0.01-0.08) K/mm3 Neutrophils % (Manual) (40-60) % Band Neutrophils % (0-10) % Lymphocytes % (Manual) (20-40) % Atypical Lymphs % % Monocytes % (Manual) (2-10) % Eosinophils % (Manual) (0.8-7.0) % Basophils % (Manual) (0.2-1.2) Platelet Estimate Anisocytosis Macrocytosis Ovalocytes RBC Morph Comment PT 21.6 H (8.0-13.0) SECONDS INR 2.00 Sodium (136-145) mEq/L Potassium (3.5-5.1) mEq/L Chloride (98-107) mEq/L Carbon Dioxide (21-32) mEq/L Anion Gap (5-15) BUN (7-18) mg/dL Creatinine (0.7-1.3) mg/dL Est Cr Clr Drug Dosing mL/min Estimated GFR (MDRD) (>60) mL/min BUN/Creatinine Ratio (14-18) Glucose (83-115) mg/dL Lactic Acid 0.9 (0.4-2.0) mmol/L Calcium (8.5-10.1) mg/dL Total Bilirubin (0.2-1.0) mg/dL AST (15-37) U/L ALT (16-63) U/L Alkaline Phosphatase (46-116) U/L C-Reactive Protein (<1.0) mg/dL Total Protein (6.4-8.2) g/dl Albumin (3.4-5.0) g/dl Globulin gm/dL Albumin/Globulin Ratio (1-2) Bruce Results Last 24 Hours: Microbiology 08/08/17 17:22 Influenza Type A Antigen Screen - Final Nasopharyngeal Swab NEGATIVE INFLUENZA A VIRUS AG Influenza Type B Antigen Screen - Final NEGATIVE INFLUENZA B VIRUS AG Med Orders - Current: Current Medications Acetaminophen (Tylenol) 650 mg PO Q6H PRN PRN Reason: Pain/Fever Last Admin: 08/08/17 22:09 Dose: 650 mg Albuterol (Proventil Neb Soln) 2.5 mg NEB Q4HRRT PRN PRN Reason: Shortness of Breath Albuterol/Ipratropium (Duoneb 3.0-0.5 Mg/3 Ml) 3 ml NEB QID PRN PRN Reason: Shortness of Breath Calcium Carbonate/Glycine (Tums) 500 mg PO DAILY [facility] Ferrous Sulfate (Ferrous Sulfate) 325 mg PO DAILY [facility] Meropenem 1 gm/ Sodium (Chloride) 100 mls @ 200 mls/hr IV Q8H [facility] Last Admin: 08/09/17 03:23 Dose: 200 mls/hr Sodium Chloride (Normal Saline) 1,000 mls @ 75 mls/hr IV ASDIRECTED [facility] Stop: 08/09/17 14:00 Last Admin: 08/09/17 06:30 Dose: 75 mls/hr Azithromycin 500 mg/ Sodium (Chloride) 250 mls @ 250 mls/hr IV Q24H [facility] Last Admin: 08/08/17 23:50 Dose: 250 mls/hr Metoprolol Succinate (Toprol Xl) 100 mg PO DAILY [facility] Non-Formulary Medication (Diltiazem [Cardizem]) 120 mg PO DAILY [facility] Ondansetron HCl (Zofran) 4 mg IVPUSH Q8H PRN PRN Reason: Nausea/Vomiting Pramipexole Dihydrochloride (Mirapex) 1.5 mg PO BEDTIME [facility] Last Admin: 08/08/17 22:10 Dose: 1.5 mg Rosuvastatin Calcium (Crestor) 10 mg PO DAILY [facility] Tamsulosin HCl (Flomax) 0.4 mg PO DAILY [facility] Warfarin Sodium (Coumadin) 5 mg PO [id number]@1800 [facility] Warfarin Sodium (Coumadin) 7.5 mg PO SuTuWeThSa@1800 [facility] Last Admin: 08/08/17 23:47 Dose: 7.5 mg Discontinued Medications Azithromycin 500 mg/ Sodium (Chloride) 250 mls @ 250 mls/hr IV ONETIME ONE Stop: 08/08/17 20:00 Last Admin: 08/08/17 23:57 Dose: 250 mls/hr Meropenem 1 gm/ Sodium (Chloride) 100 mls @ 200 mls/hr IV ONETIME ONE Stop: 08/08/17 19:28 Last Admin: 08/08/17 19:53 Dose: 200 mls/hr Sodium Chloride (Normal Saline) 1,000 mls @ 150 mls/hr IV ASDIRECTED [facility] Last Admin: 08/08/17 19:49 Dose: 150 mls/hr - Exam Quality Assessment: No: Supplemental Oxygen General: Alert, Oriented, Cooperative, No Acute Distress HEENT: Pupils Equal, Pupils Reactive, EOMI, Mucous Membr. Moist/[place] Lungs: Clear to Auscultation, Normal Respiratory Effort Cardiovascular: Irregular Rhythm, Murmurs GI/Abdominal Exam: Normal Bowel Sounds, Soft, Non-Tender, No Organomegaly, No Distention, No Abnormal Bruit (Male) Exam: Deferred Back Exam: Normal Inspection, Decreased Range of Motion Extremities: Normal Inspection, Normal Range of Motion, Non-Tender, No Pedal Edema, Normal Capillary Refill Peripheral Pulses: 2+: Dorsalis Pedis (L), Dorsalis Pedis (R) Skin: Warm, Dry, Intact Neurological: No New Focal Deficit Psy/Mental Status: Alert, Normal Affect, Normal Mood - Problem List Review Problem List Initiated/Reviewed/Updated: Yes - Plan Plan:: Assessment/Plan: Acute: Lung cancer with possible post obstructive PNA - CXR essentially looks the same from 2 other previous images taken back last year - No leukocytosis, afebrile and CRP is minimal at 4 - Influenza screening negative - Chest CT scan w/ contrast in AM - Mycoplasma pneumoniae and Strep pneumoniae Ag screening, Sputum Cx and Respiratory Panel tests - Continue IV Meropenem for now; will d/c IV Azithromycin - IS/FV and PRN Decongestant Chronic kidney disease (CKD, stage III) - Acute on chronic - Baseline GFR is > 60; 48 on admission--> now 53 - Improving Resolved: S/p Dehydration Chronic: Hx of rectal CA Hx of lymphoma, unspecified History of COPD, former tobacco, no exacerbation PVD (NATHALIE) CAD/CABG original and revision AVR, Porcine PAF on coumadin, HR controlled, INR at 2.00 PATY on CPAP ROSIE on Iron sulfate, Hgb is stable at 11.2 Plan: He is clinically stable Continue current treatment Continue IV Meropenem and D/c Zithromax; he is not immuno-suppressed by CBC IVF NS at 500 ml bolus: 250 ml before and after CT scan in AM CT of chest re: post obstructive PNA in AM D/C steroids Scheduled Douneb RT BID Routine Daily Labs with daily INR DVT prophylaxis: Warfarin Continue RT/PT/OT CM/SW for d/c planning Additional orders as above Code status: 1 Updated daughter at bedside regarding his clinical progress and addition inpatient care plan
[2017-08-09] MEDS: Calcium Carbonate 500 MG Tab.Chew PO SCH (08:36)
[2017-08-09] MEDS: Metoprolol Succinate 50 MG Tab.ER PO SCH (08:37)
[2017-08-09] MEDS: Tamsulosin 0.4 MG Cap.ER PO SCH (08:37)
[2017-08-09] MEDS: Ferrous Sulfate 325 MG Tab PO SCH (08:38)
[2017-08-09] MEDS: Rosuvastatin 10 MG Tab PO SCH (08:39)
[2017-08-09] MEDS ORDERED: DILTIAZEM 120 MG PO SCH (09:00)
[2017-08-09] MEDS ORDERED: guaiFENesin/Dextromethorphan 100-10 MG/5 ML Soln 5 ML Cup PO PRN (09:59)
[2017-08-09] MEDS: Meropenem 500 MG in Sodium Chloride 0.9% 100 ML IV SCH ×3 (11:04→20:25)
[2017-08-09] MEDS: Diltiazem 120 MG Cap.CD PO SCH (11:38)
[2017-08-09] MEDS: Acetaminophen 325 MG Tab PO PRN (15:35)
[2017-08-09] MEDS ORDERED: Azithromycin 500 MG AdvVial IV SCH (18:00)
[2017-08-09] MEDS: Warfarin 7.5 MG Tab PO SCH (18:27)
[2017-08-09] MEDS: Lisinopril 20 MG Tab PO SCH (20:35)
[2017-08-09] MEDS: Pramipexole 0.5 MG Tab PO SCH (20:35)
[2017-08-10] MEDS: Meropenem 500 MG in Sodium Chloride 0.9% 100 ML IV SCH (02:30)
[2017-08-10] MEDS ORDERED: Sodium Chloride 0.9% 500 ML IV ONE (06:00)
--- NOTE | 2017-08-10 07:27 | CR ---
Chest: Two views of the chest were obtained. Comparison: Prior chest x-ray of 08/14/16. Spiculated mass is noted within the right upper lung. This has slightly decreased in size from prior study by about 1/2 cm. Configuration of this mass is otherwise unchanged from previous exam Prominence of the right hilar region is seen which appears fairly stable from previous exam most likely due to stable lymphadenopathy. Lung markings are mildly increased from prior study possibly due to mild superimposed bronchitis. Lungs are hyperinflated compatible with emphysematous change. Previous sternotomy is noted with prior CABG and prosthetic heart valve. Degenerative spurring is noted within the spine. Impression: 1. Multiple findings as noted above. Possible bronchitis. Diagnostic code #3
[2017-08-10] MEDS ORDERED: Iopamidol 612 MG/ML 100 ML Bottle IVPUSH ONE (07:51)
[2017-08-10] MEDS ORDERED: Sodium Chloride 0.9% 10 ML Syringe FLUSH ONE (07:51)
--- NOTE | 2017-08-10 08:02 | PCM.PN ---
- General Info Date of Service: 08/10/17 Admission Dx/Problem (Free Text): Admission Diagnosis/Problem Admission Diagnosis/Problem Pneumonia Subjective Update: In to see Juan Danile. He is lying in the chair resting. He has no concerns or complaints. He has not slept well since he has been here and is trying to catch up on some sleep. He still has no leukocytosis although his CRP has increased slightly. Chest CT suggests bronchitis, increased mediastinal lymph node, and is difficult to rule out lung carcinoma. Attempted to call Oncologist - Dr. Slaughter , at family request and he is out of the office until . Will switch to levaquin for antibiotic. Will schedule duonebs as pt has some right sided wheezing. Will consult PT/OT to avoid deconditioning. Will also consult RT due to wheezing and bronchitis. Nursing has no concerns. Functional Status: Reports: Pain Controlled, Tolerating Diet, Ambulating, Urinating, Incentive Spirometry. Denies: New Symptoms - Review of Systems General: Reports: Weakness, Fatigue, Malaise, Appetite HEENT: Reports: No Symptoms. Denies: Ear Pain, Eye Pain, Headaches, Sore Throat , Rhinitis Pulmonary: Reports: Shortness of Breath, Cough, Sputum. Denies: Wheezing Cardiovascular: Reports: No Symptoms. Denies: Chest Pain, Palpitations, Dyspnea on Exertion, Edema, Lightheadedness Gastrointestinal: Reports: No Symptoms. Denies: Abdominal Pain, Constipation, Diarrhea, Nausea, Vomiting Genitourinary: Reports: No Symptoms Musculoskeletal: Reports: No Symptoms Skin: Reports: No Symptoms Neurological: Reports: No Symptoms Psychiatric: Reports: No Symptoms - Patient Data Vitals - Most Recent: Last Vital Signs Temp 98.4 F 08/10/17 02:29 Pulse 70 08/10/17 02:29 Resp 20 08/10/17 02:29 BP 131/88 08/10/17 02:29 Pulse Ox 90 L 08/10/17 02:29 Weight - Most Recent: 219 lb 3.2 oz I&O - Last 24 Hours: Intake & Output 08/09/17 08/10/17 08/10/17 22:59 06:59 14:59 Intake Total 2654 600 Output Total 650 800 Balance 2003 Lab Results Last 24 Hours: Laboratory Results - last 24 hr 08/09/17 08/10/17 08/10/17 Range/Units 05:30 06:22 06:22 WBC 8.64 (4.23-9.07) K/mm3 RBC 3.48 L (4.63-6.08) M/mm3 Hgb 11.1 L (13.7-17.5) gm/L Hct 33.9 L (40.1-51.0) % MCV 97.4 H (79.0-92.2) fl MCH 31.9 (25.7-32.2) pg MCHC 32.7 (32.2-35.5) g/dl RDW Std Deviation 51.9 H (35.1-43.9) fL Plt Count 120 L (163-337) K/mm3 MPV 9.5 (9.4-12.3) fl Neut % (Auto) 76.8 H (34.0-67.9) % Lymph % (Auto) 9.6 L (21.8-53.1) % [place] % (Auto) 11.0 (5.3-12.2) % Eos % (Auto) 2.2 (0.8-7.0) Baso % (Auto) 0.1 (0.1-1.2) % Neut # (Auto) 6.63 H (1.78-5.38) K/mm3 Lymph # (Auto) 0.83 L (1.32-3.57) K/mm3 [place] # (Auto) 0.95 H (0.30-0.82) K/mm3 Eos # (Auto) 0.19 (0.04-0.54) K/mm3 Baso # (Auto) 0.01 (0.01-0.08) K/mm3 PT (8.0-13.0) SECONDS INR Sodium 138 (136-145) mEq/L Potassium 4.0 (3.5-5.1) mEq/L Chloride 107 (98-107) mEq/L Carbon Dioxide 21 (21-32) mEq/L Anion Gap 14.0 (5-15) BUN 24 H (7-18) mg/dL Creatinine 1.0 (0.7-1.3) mg/dL Est Cr Clr Drug Dosing 61.43 mL/min Estimated GFR (MDRD) > 60 (>60) mL/min BUN/Creatinine Ratio 24.0 H (14-18) Glucose 115 (83-115) mg/dL Lactic Acid (0.4-2.0) mmol/L Calcium 8.5 (8.5-10.1) mg/dL C-Reactive Protein 4.9 H* (<1.0) mg/dL Mycoplasma pneumon IgM Negative (NEGATIVE) 08/10/17 08/10/17 Range/Units 06:22 06:22 WBC (4.23-9.07) K/mm3 RBC (4.63-6.08) M/mm3 Hgb (13.7-17.5) gm/L Hct (40.1-51.0) % MCV (79.0-92.2) fl MCH (25.7-32.2) pg MCHC (32.2-35.5) g/dl RDW Std Deviation (35.1-43.9) fL Plt Count (163-337) K/mm3 MPV (9.4-12.3) fl Neut % (Auto) (34.0-67.9) % Lymph % (Auto) (21.8-53.1) % [place] % (Auto) (5.3-12.2) % Eos % (Auto) (0.8-7.0) Baso % (Auto) (0.1-1.2) % Neut # (Auto) (1.78-5.38) K/mm3 Lymph # (Auto) (1.32-3.57) K/mm3 [place] # (Auto) (0.30-0.82) K/mm3 Eos # (Auto) (0.04-0.54) K/mm3 Baso # (Auto) (0.01-0.08) K/mm3 PT 26.1 H (8.0-13.0) SECONDS INR 2.42 Sodium (136-145) mEq/L Potassium (3.5-5.1) mEq/L Chloride (98-107) mEq/L Carbon Dioxide (21-32) mEq/L Anion Gap (5-15) BUN (7-18) mg/dL Creatinine (0.7-1.3) mg/dL Est Cr Clr Drug Dosing mL/min Estimated GFR (MDRD) (>60) mL/min BUN/Creatinine Ratio (14-18) Glucose (83-115) mg/dL Lactic Acid 0.8 (0.4-2.0) mmol/L Calcium (8.5-10.1) mg/dL C-Reactive Protein (<1.0) mg/dL Mycoplasma pneumon IgM (NEGATIVE) Bruce Results Last 24 Hours: Microbiology 08/08/17 17:00 Aerobic Blood Culture - Preliminary Blood - Venous - Lab Draw NO GROWTH AFTER 1 DAY Anaerobic Blood Culture - Preliminary NO GROWTH AFTER 1 DAY 08/08/17 16:45 Aerobic Blood Culture - Preliminary Blood - Venous NO GROWTH AFTER 1 DAY Anaerobic Blood Culture - Preliminary NO GROWTH AFTER 1 DAY 08/09/17 16:14 Gram Stain - Preliminary Sputum - Expectorated Med Orders - Current: Current Medications Acetaminophen (Tylenol) 650 mg PO Q6H PRN PRN Reason: Pain/Fever Last Admin: 08/09/17 15:35 Dose: 650 mg Albuterol (Proventil Neb Soln) 2.5 mg NEB Q4HRRT PRN PRN Reason: Shortness of Breath Albuterol/Ipratropium (Duoneb 3.0-0.5 Mg/3 Ml) 3 ml NEB QID PRN PRN Reason: Shortness of Breath Ascorbic Acid (Vitamin C) 250 mg PO DAILY [facility] Calcium Carbonate/Glycine (Tums) 500 mg PO DAILY [facility] Last Admin: 08/09/17 08:36 Dose: 500 mg Cholecalciferol (Vitamin D3) 1,000 units PO DAILY [facility] Cyanocobalamin (Vitamin B12) 1,000 mcg PO DAILY [facility] Diltiazem HCl (Cardizem Cd) 120 mg PO DAILY [facility] Last Admin: 08/09/17 11:38 Dose: 120 mg Ferrous Sulfate (Ferrous Sulfate) 325 mg PO DAILY [facility] Last Admin: 08/09/17 08:38 Dose: 325 mg Furosemide (Lasix) 40 mg PO DAILY [facility] Guaifenesin/Phenylephrine HCl (Robitussin Dm) 5 ml PO Q4H PRN PRN Reason: Cough Last Admin: 08/10/17 02:50 Dose: 5 ml Heparin Sodium (Porcine) (Heparin Lock Flush 100 Units/Ml) 500 units FLUSH ASDIRECTED PRN PRN Reason: IV Use Last Admin: 08/09/17 20:24 Dose: 150 units Meropenem 500 mg/ Sodium (Chloride) 100 mls @ 200 mls/hr IV Q8H [facility] Last Admin: 08/10/17 02:30 Dose: 200 mls/hr Iopamidol (Isovue-300 (61%)) 80 ml IVPUSH ONETIME ONE Stop: 08/10/17 07:52 Lisinopril (Prinivil) 20 mg PO BEDTIME [facility] Last Admin: 08/09/17 20:35 Dose: 20 mg Metoprolol Succinate (Toprol Xl) 100 mg PO DAILY [facility] Last Admin: 08/09/17 08:37 Dose: 100 mg Ondansetron HCl (Zofran) 4 mg IVPUSH Q8H PRN PRN Reason: Nausea/Vomiting Potassium Chloride (Klor-Con M20) 20 meq PO DAILY [facility] Pramipexole Dihydrochloride (Mirapex) 1.5 mg PO BEDTIME [facility] Last Admin: 08/09/17 20:35 Dose: 1.5 mg Rosuvastatin Calcium (Crestor) 10 mg PO DAILY [facility] Last Admin: 08/09/17 08:39 Dose: 10 mg Sodium Chloride (Saline Flush) 10 ml FLUSH ONETIME ONE Stop: 08/10/17 07:52 Tamsulosin HCl (Flomax) 0.4 mg PO DAILY [facility] Last Admin: 08/09/17 08:37 Dose: 0.4 mg Vit A/Vit C/Vit E/Selen/Cu/Zn/Lutei (Icaps Mv) 1 tab PO DAILY [facility] Warfarin Sodium (Coumadin) 5 mg PO MoFr@1800 [facility] Warfarin Sodium (Coumadin) 7.5 mg PO SuTuWeThSa@1800 [facility] Last Admin: 08/09/17 18:27 Dose: 7.5 mg Discontinued Medications Heparin Sodium (Porcine) (Heparin Lock Flush 100 Units/Ml) Confirm Administered Dose 500 units .ROUTE .STK-MED ONE Stop: 08/09/17 19:37 Last Admin: 08/09/17 20:25 Dose: Not Given Azithromycin 500 mg/ Sodium (Chloride) 250 mls @ 250 mls/hr IV ONETIME ONE Stop: 08/08/17 20:00 Last Admin: 08/08/17 23:57 Dose: 250 mls/hr Meropenem 1 gm/ Sodium (Chloride) 100 mls @ 200 mls/hr IV ONETIME ONE Stop: 08/08/17 19:28 Last Admin: 08/08/17 19:53 Dose: 200 mls/hr Sodium Chloride (Normal Saline) 1,000 mls @ 150 mls/hr IV ASDIRECTED [facility] Last Admin: 08/08/17 19:49 Dose: 150 mls/hr Meropenem 1 gm/ Sodium (Chloride) 100 mls @ 200 mls/hr IV Q8H [facility] Last Admin: 08/09/17 12:29 Dose: Not Given Sodium Chloride (Normal Saline) 1,000 mls @ 75 mls/hr IV ASDIRECTED MONA Stop: 08/09/17 14:00 Last Admin: 08/09/17 06:30 Dose: 75 mls/hr Azithromycin 500 mg/ Sodium (Chloride) 250 mls @ 250 mls/hr IV Q24H [facility] Last Admin: 08/08/17 23:50 Dose: 250 mls/hr Sodium Chloride (Normal Saline) 500 mls @ 999 mls/hr IV .BOLUS ONE Stop: 08/10/17 06:30 Last Admin: 08/10/17 05:42 Dose: 999 mls/hr Non-Formulary Medication (Ubidecarenone [Coenzyme Q-10]) 200 mg PO DAILY [facility] - Exam Quality Assessment: DVT Prophylaxis General: Alert, Oriented, Cooperative, No Acute Distress HEENT: Pupils Equal, Pupils Reactive, EOMI, Mucous Membr. Moist/[place] Neck: Supple, Trachea Midline, No JVD Lungs: Normal Respiratory Effort, Wheezing (right sided ) Cardiovascular: Regular Rate, Irregular Rhythm, Murmurs GI/Abdominal Exam: Normal Bowel Sounds, Soft, Non-Tender, No Organomegaly, No Distention, No Abnormal Bruit, No Mass, Pelvis Stable (Male) Exam: Deferred Back Exam: Normal Inspection, Full Range of Motion Extremities: Normal Inspection, Normal Range of Motion, Non-Tender, No Pedal Edema, Normal Capillary Refill Peripheral Pulses: 3+: Radial (L), Radial (R), Posterior Tibial (L), Posterior Tibial (R), Dorsalis Pedis (L), Dorsalis Pedis (R) Skin: Warm, Dry, Intact Neurological: No New Focal Deficit Psy/Mental Status: Alert, Normal Affect, Normal Mood - Problem List & Annotations (1) Acute renal insufficiency SNOMED Code(s): 841232624 Code(s): N28.9 - DISORDER OF KIDNEY AND URETER, UNSPECIFIED Status: Resolved Priority: High Current Visit: Yes (2) 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 transplanted heart: [place] heart Associated angina: angina presence unspecified Qualified Code(s): I25.810 - Atherosclerosis of coronary artery bypass graft(s) without angina pectoris (3) CKD (chronic kidney disease), stage III SNOMED Code(s): 050320919 Code(s): N18.3 - CHRONIC KIDNEY DISEASE, STAGE 3 (MODERATE) Status: Acute Priority: High Current Visit: Yes (4) COPD (chronic obstructive pulmonary disease) SNOMED Code(s): 38358100 Code(s): J44.9 - CHRONIC OBSTRUCTIVE PULMONARY DISEASE, UNSPECIFIED Status : Chronic Priority: Medium Current Visit: Yes Qualifiers: COPD type: unspecified COPD Qualified Code(s): J44.9 - Chronic obstructive pulmonary disease, unspecified (5) Lymphoma SNOMED Code(s): 003441904 Code(s): C85.90 - NON-HODGKIN LYMPHOMA, UNSPECIFIED, UNSPECIFIED SITE Status: Chronic Priority: Medium Current Visit: Yes Qualifiers: Lymphoma type: unspecified type Lymphoma site: unspecified region Qualified Code(s): C85.90 - Non-Hodgkin lymphoma, unspecified, unspecified site (6) PATY (obstructive sleep apnea) SNOMED Code(s): 60922035 Code(s): G47.33 - OBSTRUCTIVE SLEEP APNEA (ADULT) (PEDIATRIC) Status: Chronic Priority: Medium Current Visit: Yes (7) PVD (peripheral vascular disease) SNOMED Code(s): 427850689 Code(s): I73.9 - PERIPHERAL VASCULAR DISEASE, UNSPECIFIED Status: Chronic Priority: Low Current Visit: No (8) Rectal adenocarcinoma SNOMED Code(s): 844542176 Code(s): C20 - MALIGNANT NEOPLASM OF RECTUM Status: Chronic Priority: High Current Visit: Yes (9) S/P AVR SNOMED Code(s): 8271977235256, 90689248, 2438494492607 Code(s): Z95.2 - PRESENCE OF PROSTHETIC HEART VALVE Status: Chronic Priority: Medium Current Visit: No (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 SNOMED Code(s): 296769701, 020293294 Code(s): C34.90 - MALIGNANT NEOPLASM OF UNSP PART OF UNSP BRONCHUS OR LUNG Status: Acute Priority: High Current Visit: Yes Qualifiers: Laterality: right Qualified Code(s): C34.91 - Malignant neoplasm of unspecified part of right bronchus or lung (11) Lung cancer SNOMED Code(s): 333312352 Code(s): C34.90 - MALIGNANT NEOPLASM OF UNSP PART OF UNSP BRONCHUS OR LUNG Status: Chronic Priority: High Current Visit: Yes Qualifiers: Laterality: right Lung location: upper lobe of lung Qualified Code(s): C34.11 - Malignant neoplasm of upper lobe, right bronchus or lung (12) Bronchitis SNOMED Code(s): 20814419 Code(s): J40 - BRONCHITIS, NOT SPECIFIED ACUTE OR CHRONIC Status: Acute Priority: High Current Visit: Yes - Problem List Review Problem List Initiated/Reviewed/Updated: Yes - Plan Plan:: Assessment/Plan: Acute: Lung cancer with possible post obstructive PNA - CXR essentially looks the same from 2 other previous images taken back last year - No leukocytosis, afebrile and CRP is minimal at 4-5 - Influenza screening negative - Mycoplasma pneumoniae negative - Strep pneumoniae Ag screening, Sputum Cx and Respiratory Panel tests - pending - Continue IV Meropenem for now; will d/c IV Azithromycin - IS/FV and PRN Decongestant - Chest CT 08/10/17: 1. Increasing parenchymal density just to the right lateral chest wall or right lung. Difficult to exclude recurrent carcinoma. Findings also represent increased scarring 2. Increasing interstitial changes and both lung bases most likely due to bronchitis 3. Interstitial change obscured previous nodules within both lung bases 4. Stable areas of pleural thickening and minimal loculated pleural effusions. 5. Enlarged lymph nodes within the mediastinum. One of these has increased in size from prior study by about 3 mm. 6. Other incidental findings -Repeat CXR in 24-48hrs Bronchitis -No leukocytosis, afebrile, CRP 4-5 -Infectious workup negative thus far -Respiratory viral panel pending -Jose David QID -Consult RT -Other orders as above Resolved: S/p Dehydration Chronic kidney disease (CKD, stage III) - Acute on chronic - Baseline GFR is > 60; 48 on admission--> 53 --> now >60 - Returned to baseline Chronic: Hx of rectal CA Hx of lymphoma, unspecified History of COPD, former tobacco, no exacerbation PVD (NATHALIE) CAD/CABG original and revision AVR, Porcine PAF on coumadin, HR controlled, INR at 2.00 PATY on CPAP ROSIE on Iron sulfate, Hgb is stable at 11.2 Plan: He is clinically stable D/C IV Meropenem and Zithromax; he is not immuno-suppressed by CBC - Switch to IV Levaquin IVF NS at 500 ml bolus: 250 ml before and after CT scan in AM CT of chest re: post obstructive PNA in AM - results above D/C steroids Scheduled Douneb RT QID Routine Daily Labs with daily INR Home meds as ordered DVT prophylaxis: Warfarin Continue RT/PT/OT CM for d/c planning Additional orders as above Code status: 1; PCP: Dr. Spivey
[2017-08-10] MEDS: Ascorbic Acid 500 MG Tab PO SCH (08:59)
[2017-08-10] MEDS ORDERED: UBIDECARENONE 200 MG PO SCH (09:00)
[2017-08-10] MEDS: Diltiazem 120 MG Cap.CD PO SCH (09:00)
[2017-08-10] MEDS: Potassium Chloride 20 MEQ Tab.ER PO SCH (09:00)
[2017-08-10] MEDS: Cyanocobalamin (Vitamin B12) 1,000 MCG Tab PO SCH (09:00)
[2017-08-10] MEDS: Metoprolol Succinate 50 MG Tab.ER PO SCH (09:05)
[2017-08-10] MEDS: Calcium Carbonate 500 MG Tab.Chew PO SCH (09:05)
[2017-08-10] MEDS: Rosuvastatin 10 MG Tab PO SCH (09:05)
[2017-08-10] MEDS: Ferrous Sulfate 325 MG Tab PO SCH (09:05)
[2017-08-10] MEDS: Furosemide 40 MG Tab PO SCH (09:05)
[2017-08-10] MEDS: Multivitamins with Minerals/Folic Acid/Lutein/Zeaxanth Tab PO SCH (09:05)
[2017-08-10] MEDS: Cholecalciferol (Vitamin D3) 1,000 Unit Tab PO SCH (09:05)
[2017-08-10] MEDS: Tamsulosin 0.4 MG Cap.ER PO SCH (09:05)
--- NOTE | 2017-08-10 09:40 | CT ---
CT chest Technique: Multiple axial sections through the chest were obtained. Intravenous contrast was utilized. Comparison: Prior noncontrast chest CT of 05/26/16. Findings: Previous study showed a presumed pneumonia within the right upper lung which shows interval resolution. There is parenchymal density seen along the right lateral chest wall within the upper right lung. Margins of this are spiculated. This is more prominent than on previous chest CT and difficult to exclude recurrent carcinoma. Mild increasing interstitial change is noted within the right lung base as an interval change from previous exam possibly due to bronchitis. Minimal areas of increasing density within the left base are seen likely due to combination of bronchitis and atelectasis. Slight pleural thickening and loculated pleural effusions are seen bilaterally which are stable. Small nodule is noted within the left upper lung in a subpleural location which is stable. Prior study showed several left lower lung nodules as well as right lower lobe nodule which are not identified on current study due to superimposed parenchymal densities. Emphysematous change is seen within both lungs. Enlarged lymph nodes are seen within the mediastinum. One lymph node is increased in size by about 3 mm from prior exam. Other lymph nodes are felt to be stable. Bone window settings show scattered degenerative change within the spine. Small hiatal hernia is again noted. Coronary artery calcification is seen. Impression: 1. Increasing parenchymal density adjacent to the right lateral chest wall or right lung. Difficult to exclude recurrent carcinoma. Findings could also represent increasing scarring. 2. Increasing interstitial change within both lung bases most likely due to bronchitis. 3. Interstitial change obscures previous nodules within both lung bases. 4. Stable areas of pleural thickening and minimal loculated pleural effusions. 5. Enlarged lymph nodes within the mediastinum. One of these has increased in size from prior study by about 3 mm. 6. Other incidental findings. Diagnostic code #9 Drafting Engineer called report to Dr. Michelle Gallardo at 0906 on 08/10/2017
[2017-08-10] MEDS: Levofloxacin 750 MG Tab PO SCH (14:24)
[2017-08-10] MEDS ORDERED: hydrALAZINE 20 MG/ML SDV IVPUSH PRN (14:51)
[2017-08-10] MEDS ORDERED: Metoprolol Tartrate 5 MG/5 ML SDV IVPUSH PRN (14:51)
[2017-08-10] MEDS: Albuterol/Ipratropium 3.0-0.5 MG/3 ML Neb Soln NEB SCH ×2 (15:28→20:43)
[2017-08-10] MEDS ORDERED: Warfarin 5 MG Tab PO SCH (18:00)
[2017-08-10] MEDS ORDERED: Temazepam 15 MG Cap PO PRN (20:09)
[2017-08-10] MEDS: Lisinopril 20 MG Tab PO SCH (20:50)
[2017-08-10] MEDS: Pramipexole 0.5 MG Tab PO SCH (20:50)
[2017-08-11] MEDS: Albuterol/Ipratropium 3.0-0.5 MG/3 ML Neb Soln NEB SCH ×2 (03:25→08:54)
[2017-08-11] MEDS: Calcium Carbonate 500 MG Tab.Chew PO SCH (08:51)
[2017-08-11] MEDS: Metoprolol Succinate 50 MG Tab.ER PO SCH (08:51)
[2017-08-11] MEDS: Cyanocobalamin (Vitamin B12) 1,000 MCG Tab PO SCH (08:51)
[2017-08-11] MEDS: Ascorbic Acid 500 MG Tab PO SCH (08:51)
[2017-08-11] MEDS: Cholecalciferol (Vitamin D3) 1,000 Unit Tab PO SCH (08:51)
[2017-08-11] MEDS: Ferrous Sulfate 325 MG Tab PO SCH (08:51)
[2017-08-11] MEDS: Rosuvastatin 10 MG Tab PO SCH (08:52)
[2017-08-11] MEDS: Diltiazem 120 MG Cap.CD PO SCH (08:52)
[2017-08-11] MEDS: Tamsulosin 0.4 MG Cap.ER PO SCH (08:52)
[2017-08-11] MEDS: Potassium Chloride 20 MEQ Tab.ER PO SCH (08:53)
[2017-08-11] MEDS: Furosemide 40 MG Tab PO SCH (08:53)
[2017-08-11] MEDS: Multivitamins with Minerals/Folic Acid/Lutein/Zeaxanth Tab PO SCH (08:53)
[2017-08-11] MEDS ORDERED: Levofloxacin 750 MG Tab PO SCH (09:00)
[2017-08-11 11:33] VITALS: BP 137/64
--- NOTE | 2017-08-11 14:06 | PCM.DCSUM1 ---
Discharge Summary - Hospital Course HPI Initial Comments: 82 year old with multiple cancers including: lung, lymphoma (unspecified), rectal and possibly prostate. 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 He began having a cough, productive, fever/chills and increasing SOB on exertion. He has seen in the walk in clinic and instructed to go to the ED at [facility]. The temp reported by the clinic was 102.6, the ED reported 101.7. 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 The patient will be evaluated via CT of the [place] re: post obstructive PNA. This will be ordered after his renal function occurs. 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 transplanted heart: [place] heart Associated angina: angina presence unspecified Qualified Code(s): I25.810 - Atherosclerosis of coronary artery bypass graft(s) without angina pectoris (3) CKD (chronic kidney disease), stage III SNOMED Code(s): 348917590 ICD Code: N18.3 - CHRONIC KIDNEY DISEASE, STAGE 3 (MODERATE) Status: Acute Priority: High Current Visit: Yes (4) COPD (chronic obstructive pulmonary disease) SNOMED Code(s): 21827099 ICD Code: J44.9 - CHRONIC OBSTRUCTIVE PULMONARY DISEASE, UNSPECIFIED Status : Chronic Priority: Medium Current Visit: Yes Qualifiers: COPD type: unspecified COPD Qualified Code(s): J44.9 - Chronic obstructive pulmonary disease, unspecified (5) Lymphoma SNOMED Code(s): 298251071 ICD Code: C85.90 - NON-HODGKIN LYMPHOMA, UNSPECIFIED, UNSPECIFIED SITE Status: Chronic Priority: Medium Current Visit: Yes Qualifiers: Lymphoma type: unspecified type Lymphoma site: unspecified region Qualified Code(s): C85.90 - Non-Hodgkin lymphoma, unspecified, unspecified site (6) PATY (obstructive sleep apnea) SNOMED Code(s): 58898002 ICD Code: G47.33 - OBSTRUCTIVE SLEEP APNEA (ADULT) (PEDIATRIC) Status: Chronic Priority: Medium Current Visit: Yes (7) PVD (peripheral vascular disease) SNOMED Code(s): 319630846 ICD Code: I73.9 - PERIPHERAL VASCULAR DISEASE, UNSPECIFIED Status: Chronic Priority: Low Current Visit: No (8) Rectal adenocarcinoma SNOMED Code(s): 756155845 ICD Code: C20 - MALIGNANT NEOPLASM OF RECTUM Status: Chronic Priority: High Current Visit: Yes (9) S/P AVR SNOMED Code(s): 9537477122852, 98758230, 3149714113299 ICD Code: Z95.2 - PRESENCE OF PROSTHETIC HEART VALVE Status: Chronic Priority: Medium Current Visit: No (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 SNOMED Code(s): 050363646, 399704008 ICD Code: C34.90 - MALIGNANT NEOPLASM OF UNSP PART OF UNSP BRONCHUS OR LUNG Status: Acute Priority: High Current Visit: Yes Qualifiers: Laterality: right Qualified Code(s): C34.91 - Malignant neoplasm of unspecified part of right bronchus or lung (11) Lung cancer SNOMED Code(s): 291378679 ICD Code: C34.90 - MALIGNANT NEOPLASM OF UNSP PART OF UNSP BRONCHUS OR LUNG Status: Chronic Priority: High Current Visit: Yes Qualifiers: Laterality: right Lung location: upper lobe of lung Qualified Code(s): C34.11 - Malignant neoplasm of upper lobe, right bronchus or lung (12) Bronchitis SNOMED Code(s): 59765606 ICD Code: J40 - BRONCHITIS, NOT SPECIFIED ACUTE OR CHRONIC Status: Acute Priority: High Current Visit: Yes - Patient Summary/Data Consults: Consultations 08/10/17 14:34 Consult to Respiratory Therapy [Respiratory Care Assess and Treatment] [CONS] Routine 08/10/17 14:40 Consult to Occupational Therapy [OT Evaluation and Treatment] [CONS] Routine PT Evaluation and Treatment [CONS] Routine 08/10/17 15:18 Consult to Case Management [CONS] Routine Consult to Spiritual Care [CONS] Routine Labs Pending at D/C: None Recommended Follow-up Testing/Procedures: Follow-up with PCP in 7-10 days Follow-up with Dr. Slaughter as suggested by him. Hospital Course: Assessment/Plan: Acute: Lung cancer with possible post obstructive PNA - CXR essentially looks the same from 2 other previous images taken back last year - No leukocytosis, afebrile and CRP is minimal at 4-5 - Influenza screening negative - Mycoplasma pneumoniae negative - Strep pneumoniae Ag screening - negative - Sputum Cx - Normal respiratory beatris - Respiratory viral panel - positive human metapneumovirus - Discontinue IV Meropenem and IV Azithromycin - switch to Levaquin - discontinue today as is viral - IS/FV and PRN Decongestant - Chest CT 08/10/17: 1. Increasing parenchymal density just to the right lateral chest wall or right lung. Difficult to exclude recurrent carcinoma. Findings also represent increased scarring 2. Increasing interstitial changes and both lung bases most likely due to bronchitis 3. Interstitial change obscured previous nodules within both lung bases 4. Stable areas of pleural thickening and minimal loculated pleural effusions. 5. Enlarged lymph nodes within the mediastinum. One of these has increased in size from prior study by about 3 mm. 6. Other incidental findings -Repeat CXR in 24-48hrs Bronchitis -No leukocytosis, afebrile, CRP 4-5 -Infectious workup negative -Respiratory viral panel positive for human metapneumovirus -Duonebs QID -Consult RT -Other orders as above Resolved: S/p Dehydration Chronic kidney disease (CKD, stage III) - Acute on chronic - Baseline GFR is > 60; 48 on admission--> 53 --> now >60 - Returned to baseline Chronic: Hx of rectal CA Hx of lymphoma, unspecified History of COPD, former tobacco, no exacerbation PVD (NATHALIE) CAD/CABG original and revision AVR, Porcine PAF on coumadin, HR controlled, INR at 2.00 PATY on CPAP ROSIE on Iron sulfate, Hgb is stable at 11.2 Plan: He is clinically stable D/C IV Meropenem and Zithromax; he is not immuno-suppressed by CBC - Switch to IV Levaquin- D/C IVF NS at 500 ml bolus: 250 ml before and after CT scan in AM CT of chest re: post obstructive PNA in AM - results above D/C steroids Scheduled Douneb RT QID Routine Daily Labs with daily INR Home meds as ordered DVT prophylaxis: Warfarin Continue RT/PT/OT CM for d/c planning Additional orders as above Code status: 1; PCP: Dr. Spivey Overall Juan Danile did quite well. His kidney function returned to WNL. A chest CT was obtained and is noted above. We are unsure how this relates to his current cancer treatments and will defer this to his PCP and Dr. Slaughter, his oncologist to interpret in regards to his current cancer care. He continued to have no leukocytosis. His cough did become more productive with treatment but he reports he feels better and is breathing better. 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 He reports he does have a nebulizer at home and was given a prescription for albuterol PRN. His infectious workup was negative with the exception of being positive for human metapneumovirus. He was instructed to continue to use his incentive spirometry and Acapella until -symptoms resolve. He should follow-up with his PCP in 7-[address] Slaughter as directed by him. He will be discharged home today. - Patient Instructions Diet: Heart Healthy Diet Activity: As Tolerated Driving: Do Not Drive (today ) Notify Provider of: Fever, Increased Pain, Nausea and/or Vomiting (worsening shortness of breath ) - Discharge Plan Prescriptions/Med Rec: Albuterol [IJD: Albuterol] 2.5 mg NEB Q6HR PRN #20 nebule PRN Reason: Shortness Of Breath Home Medications: Home Meds Calcium Carbonate [Calcium] 500 mg PO DAILY 02/23/14 [History] Furosemide [Lasix] 40 mg PO DAILY 02/23/14 [History] Metoprolol Succinate [Toprol Xl] 100 mg PO DAILY 02/23/14 [History] Potassium Chloride 20 meq PO DAILY 02/23/14 [History] Pramipexole [Mirapex] 1.5 mg PO BEDTIME 02/23/14 [History] Ramipril [Altace] 10 mg PO BEDTIME 02/23/14 [History] Tamsulosin [Flomax] 0.4 mg PO DAILY 02/23/14 [History] Warfarin [Coumadin] 7.5 mg PO SUTUWETHSA 02/23/14 [History] atorvaSTATin [Lipitor] 40 mg PO DAILY 02/23/14 [History] Acetaminophen [Tylenol] 650 mg PO Q4H PRN 05/25/16 [History] Ascorbic Acid [Vitamin C] 250 mg PO DAILY 05/25/16 [History] Cholecalciferol (Vitamin D3) [Vitamin D] 1,000 units PO DAILY 05/25/16 [History] Cyanocobalamin (Vitamin B12) [Vitamin B12] 1,000 mcg PO DAILY 05/25/16 [History] Ferrous Sulfate [Iron] 324 mg PO DAILY 05/25/16 [History] Ubidecarenone [Coenzyme Q-10] 200 mg PO DAILY 05/25/16 [History] Antiox#10/Om3/DHA/EPA/Lut/Zeax [I-Caps with Lutein-[place] 3 SFG] 1 cap PO DAILY 08/08/17 [History] Warfarin [Coumadin] 5 mg PO MOFR 08/08/17 [History] Diltiazem HCl [Cartia Xt] 120 mg PO DAILY 08/09/17 [History] Albuterol [IJD: Albuterol] 2.5 mg NEB Q6HR PRN #20 nebule 08/11/17 [Rx] Patient Handouts: Acute Bronchitis, Adult, [id number] - Discharge Summary/Plan Comment DC Time >30 min.: Yes (45 mins) - General Info Date of Service: 08/11/17 Admission Dx/Problem (Free Text: Admission Diagnosis/Problem Admission Diagnosis/Problem Pneumonia Subjective Update: In to see Juan Daniel. He just received a shower and has been doing quite well. He does report some SOB with exertion and his oxygen saturations do drop slightly however the rebound quickly with rest. He has no concerns or complaints. No concerns from nursing. He'll be discharged today. Functional Status: Reports: Pain Controlled, Tolerating Diet, Ambulating, Urinating, Incentive Spirometry, Other (Acapella). Denies: New Symptoms - Review of Systems General: Reports: No Symptoms. Denies: Fever, Weakness, Fatigue, Malaise HEENT: Reports: No Symptoms. Denies: Eye Pain, Post Nasal Drip, Sinus Congestion Pulmonary: Reports: Cough, Sputum. Denies: Shortness of Breath Cardiovascular: Reports: Dyspnea on Exertion. Denies: No Symptoms, Chest Pain, Palpitations, Edema, Lightheadedness Gastrointestinal: Reports: No Symptoms. Denies: Abdominal Pain, Constipation, Diarrhea, Nausea Genitourinary: Reports: No Symptoms Musculoskeletal: Reports: No Symptoms Skin: Reports: No Symptoms Neurological: Reports: No Symptoms Psychiatric: Reports: No Symptoms - Patient Data Vitals - Most Recent: Last Vital Signs Temp 99.3 F 08/11/17 11:22 Pulse 74 08/11/17 11:22 Resp 21 H 08/11/17 11:22 BP 137/64 08/11/17 11:22 Pulse Ox 92 L 08/11/17 11:22 Weight - Most Recent: 217 lb 3 oz I&O - Last 24 hours: Intake & Output 08/10/17 08/11/17 08/11/17 22:59 06:59 14:59 Intake Total 1630 350 540 Output Total 2300 900 Balance -670 -550 540 Lab Results - Last 24 hrs: Laboratory Results - last 24 hr 08/10/17 08/11/17 08/11/17 Range/Units 06:22 06:09 06:09 WBC 7.76 (4.23-9.07) K/mm3 RBC 3.38 L (4.63-6.08) M/mm3 Hgb 10.7 L (13.7-17.5) gm/L Hct 32.8 L (40.1-51.0) % MCV 97.0 H (79.0-92.2) fl MCH 31.7 (25.7-32.2) pg MCHC 32.6 (32.2-35.5) g/dl RDW Std Deviation 51.5 H (35.1-43.9) fL Plt Count 123 L (163-337) K/mm3 MPV 9.6 (9.4-12.3) fl Neut % (Auto) 74.0 H (34.0-67.9) % Lymph % (Auto) 13.1 L (21.8-53.1) % [place] % (Auto) 9.4 (5.3-12.2) % Eos % (Auto) 3.0 (0.8-7.0) Baso % (Auto) 0.1 (0.1-1.2) % Neut # (Auto) 5.74 H (1.78-5.38) K/mm3 Lymph # (Auto) 1.02 L (1.32-3.57) K/mm3 [place] # (Auto) 0.73 (0.30-0.82) K/mm3 Eos # (Auto) 0.23 (0.04-0.54) K/mm3 Baso # (Auto) 0.01 (0.01-0.08) K/mm3 PT (8.0-13.0) SECONDS INR Sodium 139 (136-145) mEq/L Potassium 3.7 (3.5-5.1) mEq/L Chloride 106 (98-107) mEq/L Carbon Dioxide 22 (21-32) mEq/L Anion Gap 14.7 (5-15) BUN 26 H (7-18) mg/dL Creatinine 1.1 (0.7-1.3) mg/dL Est Cr Clr Drug Dosing 55.85 mL/min Estimated GFR (MDRD) > 60 (>60) mL/min BUN/Creatinine Ratio 23.6 H (14-18) Glucose 102 (83-115) mg/dL Lactic Acid (0.4-2.0) mmol/L Calcium 8.6 (8.5-10.1) mg/dL Magnesium 1.9 (1.8-2.4) mg/dl C-Reactive Protein 7.4 H* (<1.0) mg/dL NT-Pro-B Natriuret Pep (0-450) pg/mL 08/11/17 08/11/17 08/11/17 Range/Units 06:09 06:09 06:09 WBC (4.23-9.07) K/mm3 RBC (4.63-6.08) M/mm3 Hgb (13.7-17.5) gm/L Hct (40.1-51.0) % MCV (79.0-92.2) fl MCH (25.7-32.2) pg MCHC (32.2-35.5) g/dl RDW Std Deviation (35.1-43.9) fL Plt Count (163-337) K/mm3 MPV (9.4-12.3) fl Neut % (Auto) (34.0-67.9) % Lymph % (Auto) (21.8-53.1) % [place] % (Auto) (5.3-12.2) % Eos % (Auto) (0.8-7.0) Baso % (Auto) (0.1-1.2) % Neut # (Auto) (1.78-5.38) K/mm3 Lymph # (Auto) (1.32-3.57) K/mm3 [place] # (Auto) (0.30-0.82) K/mm3 Eos # (Auto) (0.04-0.54) K/mm3 Baso # (Auto) (0.01-0.08) K/mm3 PT 29.2 H (8.0-13.0) SECONDS INR 2.70 Sodium (136-145) mEq/L Potassium (3.5-5.1) mEq/L Chloride (98-107) mEq/L Carbon Dioxide (21-32) mEq/L Anion Gap (5-15) BUN (7-18) mg/dL Creatinine (0.7-1.3) mg/dL Est Cr Clr Drug Dosing mL/min Estimated GFR (MDRD) (>60) mL/min BUN/Creatinine Ratio (14-18) Glucose (83-115) mg/dL Lactic Acid 1.5 (0.4-2.0) mmol/L Calcium (8.5-10.1) mg/dL Magnesium 1.9 (1.8-2.4) mg/dl C-Reactive Protein (<1.0) mg/dL NT-Pro-B Natriuret Pep (0-450) pg/mL 08/11/17 Range/Units 06:09 WBC (4.23-9.07) K/mm3 RBC (4.63-6.08) M/mm3 Hgb (13.7-17.5) gm/L Hct (40.1-51.0) % MCV (79.0-92.2) fl MCH (25.7-32.2) pg MCHC (32.2-35.5) g/dl RDW Std Deviation (35.1-43.9) fL Plt Count (163-337) K/mm3 MPV (9.4-12.3) fl Neut % (Auto) (34.0-67.9) % Lymph % (Auto) (21.8-53.1) % [place] % (Auto) (5.3-12.2) % Eos % (Auto) (0.8-7.0) Baso % (Auto) (0.1-1.2) % Neut # (Auto) (1.78-5.38) K/mm3 Lymph # (Auto) (1.32-3.57) K/mm3 [place] # (Auto) (0.30-0.82) K/mm3 Eos # (Auto) (0.04-0.54) K/mm3 Baso # (Auto) (0.01-0.08) K/mm3 PT (8.0-13.0) SECONDS INR Sodium (136-145) mEq/L Potassium (3.5-5.1) mEq/L Chloride (98-107) mEq/L Carbon Dioxide (21-32) mEq/L Anion Gap (5-15) BUN (7-18) mg/dL Creatinine (0.7-1.3) mg/dL Est Cr Clr Drug Dosing mL/min Estimated GFR (MDRD) (>60) mL/min BUN/Creatinine Ratio (14-18) Glucose (83-115) mg/dL Lactic Acid (0.4-2.0) mmol/L Calcium (8.5-10.1) mg/dL Magnesium (1.8-2.4) mg/dl C-Reactive Protein (<1.0) mg/dL NT-Pro-B Natriuret Pep 3506 H (0-450) pg/mL BONNIE Results - Last 24 hrs: Microbiology 08/09/17 16:14 Gram Stain - Final Sputum - Expectorated Sputum Culture - Final NORMAL RESPIRATORY BEATRIS 2 DAYS 08/09/17 11:00 Streptococcus pneumoniae Antigen (M - Final Urine 08/09/17 11:00 Respiratory Virus Panel (PCR) - Final Nasopharyngeal Swab 08/09/17 17:15 Aerobic Blood Culture - Preliminary Blood - Venous - Lab Draw NO GROWTH AFTER 1 DAY Anaerobic Blood Culture - Preliminary NO GROWTH AFTER 1 DAY 08/09/17 17:05 Aerobic Blood Culture - Preliminary Blood - Venous NO GROWTH AFTER 1 DAY Anaerobic Blood Culture - Preliminary NO GROWTH AFTER 1 DAY 08/08/17 17:00 Aerobic Blood Culture - Preliminary Blood - Venous - Lab Draw NO GROWTH AFTER 2 DAYS Anaerobic Blood Culture - Preliminary NO GROWTH AFTER 2 DAYS 08/08/17 16:45 Aerobic Blood Culture - Preliminary Blood - Venous NO GROWTH AFTER 2 DAYS Anaerobic Blood Culture - Preliminary NO GROWTH AFTER 2 DAYS Med Orders - Current: Current Medications Acetaminophen (Tylenol) 650 mg PO Q6H PRN PRN Reason: Pain/Fever Last Admin: 08/09/17 15:35 Dose: 650 mg Albuterol (Proventil Neb Soln) 2.5 mg NEB Q4HRRT PRN PRN Reason: Shortness of Breath Albuterol/Ipratropium (Duoneb 3.0-0.5 Mg/3 Ml) 3 ml NEB QIDRT [facility] Ascorbic Acid (Vitamin C) 250 mg PO DAILY [facility] Last Admin: 08/11/17 08:51 Dose: 250 mg Calcium Carbonate/Glycine (Tums) 500 mg PO DAILY [facility] Last Admin: 08/11/17 08:51 Dose: 500 mg Cholecalciferol (Vitamin D3) 1,000 units PO DAILY [facility] Last Admin: 08/11/17 08:51 Dose: 1,000 units Cyanocobalamin (Vitamin B12) 1,000 mcg PO DAILY [facility] Last Admin: 08/11/17 08:51 Dose: 1,000 mcg Diltiazem HCl (Cardizem Cd) 120 mg PO DAILY [facility] Last Admin: 08/11/17 08:52 Dose: 120 mg Ferrous Sulfate (Ferrous Sulfate) 325 mg PO DAILY [facility] Last Admin: 08/11/17 08:51 Dose: 325 mg Furosemide (Lasix) 40 mg PO DAILY [facility] Last Admin: 08/11/17 08:53 Dose: 40 mg Guaifenesin/Phenylephrine HCl (Robitussin Dm) 5 ml PO Q4H PRN PRN Reason: Cough Last Admin: 08/10/17 02:50 Dose: 5 ml Heparin Sodium (Porcine) (Heparin Lock Flush 100 Units/Ml) 500 units FLUSH ASDIRECTED PRN PRN Reason: IV Use Last Admin: 08/09/17 20:24 Dose: 150 units Hydralazine HCl (Apresoline) 10 mg IVPUSH Q6H PRN PRN Reason: Hypertension Levofloxacin (Levaquin) 750 mg PO Q24H [facility] Last Admin: 08/10/17 14:24 Dose: 750 mg Lisinopril (Prinivil) 20 mg PO BEDTIME [facility] Last Admin: 08/10/17 20:50 Dose: 20 mg Magnesium Sulfate (Pharmacy To Dose - Magnesium Replacement) 1 dose .XX ASDIRECTED [facility] Metoprolol Succinate (Toprol Xl) 100 mg PO DAILY [facility] Last Admin: 08/11/17 08:51 Dose: 100 mg Metoprolol Tartrate (Lopressor) 5 mg IVPUSH Q4H PRN PRN Reason: Tachycardia Ondansetron HCl (Zofran) 4 mg IVPUSH Q8H PRN PRN Reason: Nausea/Vomiting Potassium Chloride (Klor-Con M20) 20 meq PO DAILY [facility] Last Admin: 08/11/17 08:53 Dose: 20 meq Potassium Chloride (Pharmacy To Dose - Potassium Replacement) 1 dose .XX ASDIRECTED [facility] Pramipexole Dihydrochloride (Mirapex) 1.5 mg PO BEDTIME [facility] Last Admin: 08/10/17 20:50 Dose: 1.5 mg Rosuvastatin Calcium (Crestor) 10 mg PO DAILY [facility] Last Admin: 08/11/17 08:52 Dose: 10 mg Tamsulosin HCl (Flomax) 0.4 mg PO DAILY [facility] Last Admin: 08/11/17 08:52 Dose: 0.4 mg Temazepam (Restoril) 15 mg PO BEDTIME PRN PRN Reason: Sleep Last Admin: 08/10/17 20:50 Dose: 15 mg Vit A/Vit C/Vit E/Selen/Cu/Zn/Lutei (Icaps Mv) 1 tab PO DAILY [facility] Last Admin: 08/11/17 08:53 Dose: 1 tab Warfarin Sodium (Coumadin) 5 mg PO MoFr@1800 [facility] Last Admin: 08/10/17 18:36 Dose: 5 mg Warfarin Sodium (Coumadin) 7.5 mg PO SuTuWeThSa@1800 [facility] Last Admin: 08/09/17 18:27 Dose: 7.5 mg Discontinued Medications Albuterol/Ipratropium (Duoneb 3.0-0.5 Mg/3 Ml) 3 ml NEB QID PRN PRN Reason: Shortness of Breath Albuterol/Ipratropium (Duoneb 3.0-0.5 Mg/3 Ml) 3 ml NEB Q6HRRT [facility] Last Admin: 08/11/17 08:54 Dose: 3 ml Heparin Sodium (Porcine) (Heparin Lock Flush 100 Units/Ml) Confirm Administered Dose 500 units .ROUTE .[facility] ONE Stop: 08/09/17 19:37 Last Admin: 08/09/17 20:25 Dose: Not Given Azithromycin 500 mg/ Sodium (Chloride) 250 mls @ 250 mls/hr IV ONETIME ONE Stop: 08/08/17 20:00 Last Admin: 08/08/17 23:57 Dose: 250 mls/hr Meropenem 1 gm/ Sodium (Chloride) 100 mls @ 200 mls/hr IV ONETIME ONE Stop: 08/08/17 19:28 Last Admin: 08/08/17 19:53 Dose: 200 mls/hr Sodium Chloride (Normal Saline) 1,000 mls @ 150 mls/hr IV ASDIRECTED [facility] Last Admin: 08/08/17 19:49 Dose: 150 mls/hr Meropenem 1 gm/ Sodium (Chloride) 100 mls @ 200 mls/hr IV Q8H [facility] Last Admin: 08/09/17 12:29 Dose: Not Given Sodium Chloride (Normal Saline) 1,000 mls @ 75 mls/hr IV ASDIRECTED MONA Stop: 08/09/17 14:00 Last Admin: 08/09/17 06:30 Dose: 75 mls/hr Azithromycin 500 mg/ Sodium (Chloride) 250 mls @ 250 mls/hr IV Q24H [facility] Last Admin: 08/08/17 23:50 Dose: 250 mls/hr Sodium Chloride (Normal Saline) 500 mls @ 999 mls/hr IV .BOLUS ONE Stop: 08/10/17 06:30 Last Admin: 08/10/17 05:42 Dose: 999 mls/hr Meropenem 500 mg/ Sodium (Chloride) 100 mls @ 200 mls/hr IV Q8H [facility] Last Admin: 08/10/17 02:30 Dose: 200 mls/hr Iopamidol (Isovue-300 (61%)) 80 ml IVPUSH ONETIME ONE Stop: 08/10/17 07:52 Last Admin: 08/10/17 08:34 Dose: 80 ml Levofloxacin (Levaquin) 750 mg PO Q24H [facility] Non-Formulary Medication (Ubidecarenone [Coenzyme Q-10]) 200 mg PO DAILY [facility] Sodium Chloride (Saline Flush) 10 ml FLUSH ONETIME ONE Stop: 08/10/17 07:52 Last Admin: 08/10/17 08:34 Dose: 10 ml - Exam Quality Assessment: Reports: DVT Prophylaxis General: Reports: Alert, Oriented, Cooperative, No Acute Distress HEENT: Reports: Pupils Equal, Pupils Reactive, EOMI, Mucous Membr. Moist/[place] Neck: Reports: Supple, Trachea Midline Lungs: Reports: Normal Respiratory Effort, Wheezing (very mild right sided wheezing ) Cardiovascular: Reports: Regular Rate, Irregular Rhythm, Murmurs GI/Abdominal Exam: Normal Bowel Sounds, Soft, Non-Tender, No Organomegaly, No Distention, No Abnormal Bruit, No Mass, Pelvis Stable (Male) Exam: Deferred Rectal (Males) Exam: Deferred Back Exam: Reports: Normal Inspection, Full Range of Motion Extremities: Normal Inspection, Normal Range of Motion, Non-Tender, No Pedal Edema, Normal Capillary Refill Skin: Reports: Warm, Dry, Intact Neurological: Reports: No New Focal Deficit Psy/Mental Status: Reports: Alert, Normal Affect, Normal Mood
[2017-08-11] MEDS: Levofloxacin 750 MG Tab PO SCH (14:43)
[2017-08-11] MEDS ORDERED: Albuterol/Ipratropium 3.0-0.5 MG/3 ML Neb Soln NEB SCH (16:00)
== END 2017-08-11 15:13 | disposition home or self-care (01) | DRG 194 ==
LOC: JD.ED 15:26 → JD.MS 20:13
PROVIDERS: ADMIT Internal Medicine Cardiovascular Disease; ATTEND Internal Medicine Cardiovascular Disease
DX: J18.9 Pneumonia, unspecified organism (principal); C34.90 Malignant neoplasm of unspecified part of unspecified bronchus or lung; J12.3 Human metapneumovirus pneumonia; J20.8 Acute bronchitis due to other specified organisms; I25.810 Atherosclerosis of coronary artery bypass graft(s) without angina pectoris; C34.91 Malignant neoplasm of unspecified part of right bronchus or lung; I10 Essential (primary) hypertension; N17.9 Acute kidney failure, unspecified; G47.30 Sleep apnea, unspecified; C61 Malignant neoplasm of prostate; Z87.891 Personal history of nicotine dependence; E86.0 Dehydration; Z85.048 Personal history of other malignant neoplasm of rectum, rectosigmoid junction, and anus; Z85.72 Personal history of non-Hodgkin lymphomas; Z95.3 Presence of xenogenic heart valve; I12.9 Hypertensive chronic kidney disease with stage 1 through stage 4 chronic kidney disease, or unspecified chronic kidney disease; N18.3 Chronic kidney disease, stage 3 (moderate); I73.9 Peripheral vascular disease, unspecified; I48.0 Paroxysmal atrial fibrillation; Z79.01 Long term (current) use of anticoagulants; M19.90 Unspecified osteoarthritis, unspecified site; G47.33 Obstructive sleep apnea (adult) (pediatric); J44.9 Chronic obstructive pulmonary disease, unspecified; D50.9 Iron deficiency anemia, unspecified; E78.00 Pure hypercholesterolemia, unspecified; Z79.899 Other long term (current) drug therapy; G89.29 Other chronic pain; M54.9 Dorsalgia, unspecified; M54.2 Cervicalgia; H54.7 Unspecified visual loss
CPT/HCPCS: 36415; 71046; 80053; 83605; 85025; 87040 ×2; 87804 ×2; 96365; 99285; J2185; J7030; J7040; 71260; 71260-26; 80048; 83735; 83880; 85610; 86140; 86738; 87070; 87205; 87486; 87581; 87633; 87798; 87899; 94640; 94667; 94760; 94761; 97116-GP; 97162-GP; 97165-GO; 97530-GO; 99222; 99232; 99239; A9270-GY; J0456; J1642; J7050; Q9967

== ENCOUNTER 2019-05-17 17:27 | Emergency (ER) | payer MEDICARE, BC ==
[2019-05-17 18:01] VITALS: BP 156/69; PULSE 82
--- NOTE | 2019-05-17 19:15 | EDM.PDOC ---
ED HPI GENERAL MEDICAL PROBLEM - General Chief Complaint: Gastrointestinal Problem Stated Complaint: SENT FROM [place]/LABWORK Time Seen by Provider: 05/17/19 18:09 - History of Present Illness INITIAL COMMENTS - FREE TEXT/NARRATIVE: 83-year-old male presents the emergency room for further treatment of a suspected upper GI bleed. Patient was seen by his primary physician today 1-1/2-week history of having daily black stools. His hemoglobin usually right at 11 today was found to be 8.3. The patient recently had a colonoscopy back in January as he has a history of colon cancer in the past and this was clean at that time. The thought was the patient would come in to be observed overnight and have a EGD in the morning. Is stable and otherwise doing good at this time. - Related Data Allergies Allergy/AdvReac Type Severity Reaction Status Date / Time No Known Allergies Allergy Verified 05/17/19 18:01 Home Meds: Home Meds Calcium Carbonate [Calcium] 500 mg PO DAILY 02/23/14 [History] Potassium Chloride 20 meq PO BEDTIME 02/23/14 [History] Pramipexole [Mirapex] 1.5 mg PO BEDTIME 02/23/14 [History] Ramipril [Altace] 10 mg PO BEDTIME 02/23/14 [History] Tamsulosin [Flomax] 0.4 mg PO DAILY 02/23/14 [History] Warfarin [Coumadin] 7.5 mg PO ASDIRECTED 02/23/14 [History] atorvaSTATin [Lipitor] 40 mg PO DAILY 02/23/14 [History] Acetaminophen [Tylenol] 650 mg PO Q4H PRN 05/25/16 [History] Ascorbic Acid [Vitamin C] 250 mg PO DAILY 05/25/16 [History] Cholecalciferol (Vitamin D3) [Vitamin D] 1,000 units PO DAILY 05/25/16 [History] Ferrous Sulfate [Iron] 324 mg PO DAILY 05/25/16 [History] Antiox.mv No.10/Omeg3s/Lut/Amelie [I-Caps with Lutein-[place] 3 SFG] 1 cap PO DAILY 08/08/17 [History] Warfarin [Coumadin] 5 mg PO ASDIRECTED 08/08/17 [History] Diltiazem HCl [Cartia Xt] 120 mg PO DAILY 08/09/17 [History] Cyanocobalamin (Vitamin B-12) [Vitamin B-12] 2,000 unit PO DAILY 03/31/19 [ History] Zolpidem Tartrate [Ambien] 5 mg PO ASDIRECTED 03/31/19 [History] Furosemide [Lasix] 60 mg PO DAILY #45 tablet 04/02/19 [Rx] Metoprolol Succinate [Toprol XL 50mg] 50 mg PO BEDTIME #30 tab.er 04/02/19 [Rx] Pantoprazole Sodium [Protonix] 40 mg PO DAILY #30 suspdr.pkt 05/17/19 [Rx] Sucralfate [Carafate] 1 gm PO ASDIRECTED #24 tablet 05/17/19 [Rx] Past Medical History HEENT History: Reports: Impaired Vision Other HEENT History: glasses, dental implant Cardiovascular History: Reports: Afib, CAD, High Cholesterol, Hypertension, Stents Respiratory History: Reports: Sleep Apnea, Other (See Below) Other Respiratory History: lung cancer Other Gastrointestinal History: hernia with repair Genitourinary History: Reports: Prostate Disorder Other Genitourinary History: uncertain of diagnosis but may have prostate cancer Musculoskeletal History: Reports: Arthritis, Back Pain, Chronic, Neck Pain, Chronic, Other (See Below) Other Musculoskeletal History: torn rotator cuff R shoulder, neuropathy Neurological History: Reports: Neuropathy, Peripheral Hematologic History: Reports: Blood Transfusion(s) Oncologic (Cancer) History: Reports: Lung, Lymphoma, Prostate, Other (See Below) Other Oncologic History: rectal cancer, surgically removed. reportedly in remission. - Infectious Disease History Infectious Disease History: Reports: Other (See Below) Other Infectious Disease History: blood infection - Past Surgical History Head Surgeries/Procedures: Reports: None HEENT Surgical History: Reports: Cataract Surgery Cardiovascular Surgical History: Reports: Carotid Stents, Coronary Artery Bypass , Valve Replacement Endocrine Surgical History: Reports: None Neurological Surgical History: Reports: Lumbar Spine Dermatological Surgical History: Reports: Skin Graft Social & Family History - Family History Family Medical History: Noncontributory Cardiac: Reports: CAD : Reports: Other (See Below) Oncologic: Reports: Lung - Tobacco Use Smoking Status *Q: Former Smoker Used Tobacco, but Quit: Yes Month/Year Tobacco Last Used: about 45 years ago - Caffeine Use Caffeine Use: Reports: Coffee - Recreational Drug Use Recreational Drug Use: No - Living Situation & Occupation Living situation: Reports: , with Spouse Occupation: Retired ED ROS GENERAL - Review of Systems Review Of Systems: See Below Constitutional: Reports: No Symptoms. Denies: Fever, Chills Respiratory: Reports: No Symptoms Cardiovascular: Reports: No Symptoms GI/Abdominal: Reports: Black Stool, Melena. Denies: No Symptoms, Abdominal Pain , Bloody Stool, Constipation, Diarrhea, Hematemesis, Hematochezia, Nausea, Vomiting : Reports: No Symptoms Musculoskeletal: Reports: No Symptoms Skin: Reports: No Symptoms ED EXAM, GI/ABD - Physical Exam Exam: See Below Exam Limited By: No Limitations General Appearance: Alert, No Apparent Distress Respiratory/Chest: No Respiratory Distress, Lungs Clear, Normal Breath Sounds Cardiovascular: Regular Rate, Rhythm, No Edema, Systolic Murmur (Is a soft holosystolic murmur heard in the upper left sternal border it may have an early diastolic component as well) GI/Abdominal Exam: Normal Bowel Sounds, Soft, Non-Tender Course - Vital Signs Last Recorded V/S: Last Vital Signs Temp 36.8 C 05/17/19 17:54 Pulse 82 05/17/19 17:54 Resp 18 05/17/19 17:54 BP 156/69 H 05/17/19 17:54 Pulse Ox 96 05/17/19 17:54 - Orders/Labs/Meds Orders: Active Orders 24 hr Category Date Time Status Pantoprazole [ProTONIX] Med 05/18/19 19:32 Once 40 mg PO ONETIME ONE Sucralfate [Carafate] Med 05/17/19 19:34 Once 1 gm PO ONETIME ONE Medication Orders Pantoprazole Sodium (Protonix) 40 mg PO ONETIME ONE Stop: 05/18/19 19:33 Meds: Medications Generic Name Dose Route Start Last Admin Trade Name Freq PRN Reason Stop Dose Admin Pantoprazole Sodium 40 mg 05/18/19 19:32 Protonix PO 05/18/19 19:33 ONETIME ONE - Re-Assessments/Exams Free Text/Narrative Re-Assessment/Exam: 05/17/19 19:39 I did not perform a digital rectal exam this was done in the clinic and occult was reported to be weakly positive. I did discuss the patient's case with Dr. Gonzales who thought the patient needed medical management and not necessarily an EGD. I did discuss with the patient and his and they would rather go home at this point which I do not think is unreasonable if we start medical management tonight. The patient and his are in agreement to this. I did discuss this with Dr. David who will facilitate follow-up hemoglobin and hematocrit as these will need to be followed Departure - Departure Time of Disposition: 19:41 Disposition: Home, Self-Care 01 Clinical Impression: Upper GI bleed - Discharge Information Prescriptions: Pantoprazole Sodium [Protonix] 40 mg PO DAILY #30 suspdr.pkt Sucralfate [Carafate] 1 gm PO ASDIRECTED #24 tablet Referrals: Reggie Spivey MD [Primary Care Provider] - Forms: ED Department Discharge Additional Instructions: Return to the emergency room with any questions problems or worsening symptoms. Take the Protonix every day 60 minutes before your morning meal. You will take Carafate for 6 days take it immediately before your morning midday and evening meals and again at bedtime take your other medications at least an hour before or 2 hours after taking the Carafate. Dr. Spivey will arrange follow-up hemoglobin and hematocrits. Sepsis Event Note - Evaluation Sepsis Screening Result: No Definite Risk - Focused Exam Vital Signs: Vital Signs Temp Pulse Resp BP Pulse Ox 05/17/19 17:54 36.8 C 82 18 156/69 H 96 Date Exam was Performed: 05/17/19 Time Exam was Performed: 19:35 - My Orders Last 24 Hours: My Active Orders 05/17/19 19:34 Sucralfate [Carafate] 1 gm PO ONETIME ONE 05/18/19 19:32 Pantoprazole [ProTONIX] 40 mg PO ONETIME ONE - Assessment/Plan Last 24 Hours: My Active Orders 05/17/19 19:34 Sucralfate [Carafate] 1 gm PO ONETIME ONE 05/18/19 19:32 Pantoprazole [ProTONIX] 40 mg PO ONETIME ONE
[2019-05-17] MEDS ORDERED: Sucralfate Suspension 1 GM/10 ML Cup PO ONE (19:34)
[2019-05-17] MEDS ORDERED: Pantoprazole 40 MG Tab.CR ONE (19:47)
[2019-05-18] MEDS ORDERED: Pantoprazole 40 MG Tab.CR PO ONE (19:32)
== END 2019-05-17 19:56 | disposition home or self-care (01) ==
LOC: JD.ED 17:27
DX: K92.2 Gastrointestinal hemorrhage, unspecified (principal); I10 Essential (primary) hypertension; Z87.891 Personal history of nicotine dependence; Z79.01 Long term (current) use of anticoagulants; Z79.899 Other long term (current) drug therapy
CPT/HCPCS: 99284; A9270; 99283

== ENCOUNTER 2019-05-25 09:15 | Day surgery (SDC) | payer MEDICARE, BC ==
[~2019-05-25 09:15] MED LIST: Lactated Ringers 1,000 ML IV SCH; Lidocaine 1%/Sod Bicarbonate in NS 8.4% 1 ML Syringe IDERM PRN; Sodium Chloride 0.9% 10 ML Syringe FLUSH PRN
[2019-05-25] MEDS ORDERED: Propofol 200 MG/20 ML SDV ONE (09:33)
[2019-05-25] MEDS ORDERED: fentaNYL 100 MCG/2 ML SDV ONE (09:33)
[2019-05-25] MEDS ORDERED: Lidocaine 1% 4 ML ONE (09:34)
[2019-05-25] MEDS ORDERED: Sodium Chloride 0.9% 10 ML Syringe FLUSH PRN (09:51)
[2019-05-25] MEDS ORDERED: Lactated Ringers 1,000 ML IV SCH (10:00)
--- NOTE | 2019-05-25 10:46 | PCM.PRNOTE ---
- Free Text/Narrative Note: Operative Report Date of procedure: May 25, 2019 Preoperative diagnosis: Melena and anemia Postoperative diagnosis: Same Surgeon: Merly Aleman M.D. Procedure: EGD Anesthesia: MAC Anesthesiologist: Caroline Virgen CRNA IV fluids: 500 Estimated blood loss: 0 mL Findings: 1. Stigmata of recent gastritis with healing tissue 2. Duodenitis 3. Small sliding hiatal hernia with irregular GE Junction Specimens: 1. Duodenum 2. Gastric antrum 3. GE junction Indication: The patient is an 83 -year-old gentleman who presented with anemia and recent melena. The patient was consented for an EGD or diagnostic purposes. Risk of bleeding and perforation were discussed. The patient's consent was obtained Description of the procedure: The patient was taken to the endoscopy suite and placed on hemodynamic monitoring. The nurse produce shipper induced MAC anesthesia. A bite block was placed. The patient was positioned in the left lateral decubitus position. A timeout was performed. The endoscope was gently placed into the mouth to the back of the pharynx and introduced into the esophagus. The scope was gently advanced under direct visualization down to the level of the lower esophageal sphincter. The stomach was then entered. Normal rugal folds were noted. There were diffuse patchy areas in the distal body of the stomach and antrum that appeared to be new healing tissue The scope was advanced into the antrum. The pylorus was then entered and the first and second portion of the duodenum was inspected. We did note some erythema and friability consistent with duodenitis. Biopsies were taken with the cold biopsy forceps in the duodenum. There were no ulcerations in the duodenum. The scope was withdrawn into the antrum and biopsies were taken with cold biopsy forceps for H. pylori testing. The scope was then retroflexed in the cardia and fundus were investigated. No other abnormalities were noted. The scope was then withdrawn while inspecting the esophagus. A small sliding hiatal hernia was noted (1-2 cm) with mild irregularity of the GE junction. Biopsies were taken of the GE junction in 4 quadrants using cold biopsy forceps. There was no additional esophagitis. The procedure was terminated. the patient tolerated the procedure well without any evidence of complications. Instructions: The patient will follow-up in 2 weeks for results of pathology. He should resume his Coumadin this evening. We will await findings of pathology before determining any other treatments. It is most likely that his melena and anemia arose from recent gastritis which is now healing. Merly Aleman MD General Surgery
--- NOTE | 2019-05-25 10:46 | PCM.OPNOTE ---
- General Post-Op/Procedure Note Date of Surgery/Procedure: 05/25/19 Operative Procedure(s): EGD with biopsy Findings: 1. Stigmata of recent gastritis with healing tissue 2. Duodenitis 3. Small sliding hiatal hernia with irregular GE Junction Pre Op Diagnosis: Melena and anemia Post-Op Diagnosis: same Anesthesia Technique: NAWAF Primary Surgeon: Merly Aleman Anesthesia Provider: Caroline Andrews Pathology: 1. Duodenal biopsy 2. Gastric antrum 3. GE junction Fluid Replacement, Intraop: 500 EBL in mLs: 0 Complications: None apparent Condition: Good
--- NOTE | 2019-05-25 10:51 | PCM.PREANE ---
Preanesthetic Assessment - Anesthesia/Transfusion/Family Hx Anesthesia History: Prior Anesthesia Without Reaction Other Type of Anesthesia Reaction Comment: drowsiness Family History of Anesthesia Reaction: No Transfusion History: Prior Transfusion Without Reaction - Review of Systems General: Weakness Pulmonary: Cough (Mornings nonporductive, COPD, Former Smoker ) Cardiovascular: No Symptoms, Other (CABG, AVR, Carotid stent, follows with cardiology last seen in January, stable with no changes in management. Chronic atrial fibrillation) Gastrointestinal: Melena Neurological: Pre-Existing Deficit (Neuropathy to feet making ambulation difficult, shuffling, seeing physical therapy. ), Difficulty Walking, Gait Disturbance Other: Reports: Easy Bleeding, Easy Bruising (Anticoagulation Coumadin) - Physical Assessment NPO Status Date: 05/24/19 NPO Status Time: 18:00 Vital Signs: Last Vital Signs Temp 36.4 C 05/25/19 10:35 Pulse 65 05/25/19 10:35 Resp 20 05/25/19 10:35 BP 116/59 L 05/25/19 10:35 Pulse Ox 94 L 05/25/19 10:35 Height: 1.83 m Weight: 94.347 kg ASA Class: 3 Mental Status: Alert & Oriented x3 Airway Class: Mallampati = 2 Dentition: Reports: Normal Dentition Thyro-Mental Finger Breadths: 3 Mouth Opening Finger Breadths: 3 ROM/Head Extension: Full Lungs: Clear to Auscultation, Normal Respiratory Effort Cardiovascular: Irregular Rhythm, Murmurs (History of Atrial Fibrillation/ Atrial Flutter ) - Lab Values: Laboratory Last Values PT 11.4 SECONDS (9.7-12.0) D 05/25/19 09:28 INR 1.05 05/25/19 09:28 - Allergies Allergies/Adverse Reactions: Allergies Allergy/AdvReac Type Severity Reaction Status Date / Time gabapentin Allergy UNKNOWN Verified 05/24/19 12:35 - Anesthesia Plan Beta Malka: Metoprolol Med Last Dose Date: 05/25/19 Med Last Dose Time: 08:45 - Acknowledgements Anesthesia Type Planned: MAC Pt an Appropriate Candidate for the Planned Anesthesia: Yes Alternatives and Risks of Anesthesia Discussed w Pt/Guardian: Yes Pt/Guardian Understands and Agrees with Anesthesia Plan: Yes PreAnesthesia Questionnaire HEENT History: Reports: Impaired Vision Other HEENT History: glasses, dental implant Cardiovascular History: Reports: Afib, CAD, Heart Failure, High Cholesterol, Hypertension, PVD, Stents Other Cardiovascular History: AAA, carotid stenosis, valvular heart disease Respiratory History: Reports: COPD, Sleep Apnea, Other (See Below) Other Respiratory History: lung cancer Gastrointestinal History: Reports: Other (See Below) Other Gastrointestinal History: hernia with repair Genitourinary History: Reports: Prostate Disorder Other Genitourinary History: renal artery stenosis MASS SPEC History: Reports: None Musculoskeletal History: Reports: Arthritis, Back Pain, Chronic, Neck Pain, Chronic, Other (See Below) Other Musculoskeletal History: torn rotator cuff R shoulder, neuropathy Neurological History: Reports: Neuropathy, Peripheral Psychiatric History: Reports: Other (See Below) Other Psychiatric History: insomnia Endocrine/Metabolic History: Reports: None Hematologic History: Reports: Anemia, Blood Transfusion(s) Immunologic History: Reports: None Oncologic (Cancer) History: Reports: Lung, Lymphoma, Prostate, Other (See Below) Other Oncologic History: rectal cancer, surgically removed. reportedly in remission. Dermatologic History: Reports: None - Infectious Disease History Infectious Disease History: Reports: Other (See Below) Other Infectious Disease History: blood infection - Past Surgical History Head Surgeries/Procedures: Reports: None HEENT Surgical History: Reports: Cataract Surgery Cardiovascular Surgical History: Reports: Carotid Endarterectomy, Carotid Stents , Coronary Artery Bypass, Valve Replacement Respiratory Surgical History: Reports: None Endocrine Surgical History: Reports: None Neurological Surgical History: Reports: Laminectomy, Lumbar Spine Musculoskeletal Surgical History: Reports: None Oncologic Surgical History: Reports: None Dermatological Surgical History: Reports: Skin Graft - SUBSTANCE USE Smoking Status *Q: Former Smoker Recreational Drug Use History: No - HOME MEDS Home Medications: Home Meds Calcium Carbonate [Calcium] 500 mg PO DAILY 02/23/14 [History] Potassium Chloride 20 meq PO BEDTIME 02/23/14 [History] Pramipexole [Mirapex] 1.5 mg PO BEDTIME 02/23/14 [History] Ramipril [Altace] 10 mg PO BEDTIME 02/23/14 [History] Tamsulosin [Flomax] 0.4 mg PO DAILY 02/23/14 [History] Warfarin [Coumadin] 7.5 mg PO DAILY 02/23/14 [History] atorvaSTATin [Lipitor] 40 mg PO DAILY 02/23/14 [History] Diltiazem HCl [Cartia Xt] 120 mg PO DAILY 08/09/17 [History] Zolpidem Tartrate [Ambien] 5 mg PO BEDTIME PRN 03/31/19 [History] Furosemide [Lasix] 60 mg PO DAILY #45 tablet 04/02/19 [Rx] Metoprolol Succinate [Toprol XL 50mg] 50 mg PO BEDTIME #30 tab.er 04/02/19 [Rx] Pantoprazole Sodium [Protonix] 40 mg PO DAILY #30 suspdr.pkt 05/17/19 [Rx] Cholecalciferol (Vitamin D3) [Vitamin D3] 2,000 unit PO DAILY 05/24/19 [History] Cyanocobalamin (Vitamin B-12) [Vitamin B-12] 1,500 mcg PO DAILY 05/24/19 [ History] Iron,Carbonyl/Ascorbic Acid [Vitron-C Tablet] 1 tab PO DAILY 05/24/19 [History] Sucralfate [Carafate] 1 gm PO QID 05/24/19 [History] Ubidecarenone [Coq-10] 100 mg PO DAILY 05/24/19 [History] - CURRENT (IN HOUSE) MEDS Current Meds: Current Medications Lactated Ringer's (Ringers, Lactated) 1,000 mls @ 125 mls/hr IV ASDIRECTED [facility] Last Admin: 05/25/19 09:28 Dose: 125 mls/hr Sodium Chloride (Saline Flush) 10 ml FLUSH ASDIRECTED PRN PRN Reason: Keep Vein Open Discontinued Medications Fentanyl (Sublimaze) Confirm Administered Dose 100 mcg .ROUTE .STK-MED ONE Stop: 05/25/19 09:34 Lactated Ringer's (Ringers, Lactated) 1,000 mls @ 125 mls/hr IV ASDIRECTED [facility] Stop: 05/24/19 23:00 Lidocaine HCl (Xylocaine-Mpf 1%) Confirm Administered Dose 4 mls @ as directed .ROUTE .STK-MED ONE Stop: 05/25/19 09:35 Lidocaine/Sodium Bicarbonate (Buffered Lidocaine 1% In Ns 8.4%) 0.25 ml IDERM ONETIME PRN PRN Reason: Prior to IV Start Stop: 05/24/19 18:00 Propofol (Diprivan 20 Ml) Confirm Administered Dose 200 mg .ROUTE .STK-MED ONE Stop: 05/25/19 09:34 Sodium Chloride (Saline Flush) 10 ml FLUSH ASDIRECTED PRN PRN Reason: Keep Vein Open Stop: 05/24/19 18:00
--- NOTE | 2019-05-25 10:54 | PCM48HPAN ---
Post Anesthesia Note - EVALUATION WITHIN 48HRS OF ANESTHETIC Vital Signs in Normal Range: Yes Patient Participated in Evaluation: Yes Respiratory Function Stable: Yes Airway Patent: Yes Cardiovascular Function Stable: Yes Hydration Status Stable: Yes Pain Control Satisfactory: Yes Nausea and Vomiting Control Satisfactory: Yes Mental Status Recovered: Yes Vital Signs: Last Vital Signs Temp 36.4 C 05/25/19 10:35 Pulse 65 05/25/19 10:35 Resp 20 05/25/19 10:35 BP 116/59 L 05/25/19 10:35 Pulse Ox 94 L 05/25/19 10:35
[2019-05-25 11:02] VITALS: BP 128/53; PULSE 57
== END 2019-05-25 11:33 | disposition home or self-care (01) ==
LOC: JD.SDS 09:15
PROVIDERS: ATTEND Surgery
DX: K29.71 Gastritis, unspecified, with bleeding (principal); K29.81 Duodenitis with bleeding; K44.9 Diaphragmatic hernia without obstruction or gangrene; K22.8 Other specified diseases of esophagus; D64.9 Anemia, unspecified; K20.9 Esophagitis, unspecified; I13.0 Hypertensive heart and chronic kidney disease with heart failure and stage 1 through stage 4 chronic kidney disease, or unspecified chronic kidney disease; I50.9 Heart failure, unspecified; N18.3 Chronic kidney disease, stage 3 (moderate); I25.10 Atherosclerotic heart disease of native coronary artery without angina pectoris; E78.5 Hyperlipidemia, unspecified; G47.33 Obstructive sleep apnea (adult) (pediatric); J44.9 Chronic obstructive pulmonary disease, unspecified; N40.0 Benign prostatic hyperplasia without lower urinary tract symptoms; Z99.89 Dependence on other enabling machines and devices; Z79.899 Other long term (current) drug therapy; Z79.01 Long term (current) use of anticoagulants; Z87.891 Personal history of nicotine dependence
CPT/HCPCS: 00731; 36415; 85610; J2001; J2704; J3010; J7120